=== PATIENT | female | born 1985 | race Hispanic/Latino ===

== ENCOUNTER 2018-09-14 22:38 | Emergency (ER) | payer OTHER, SELFPAY ==
--- NOTE | 2018-09-14 23:37 | RAD ---
EXAM: CHEST ONE VIEW PORTABLE: History: Injury from a fall. FINDINGS: Heart size is normal. The lungs are clear. No confluent pneumonia, overt edema, or pleural effusion. IMPRESSION: No significant acute intrathoracic disease. POS: [facility]
--- NOTE | 2018-09-14 23:48 | RAD ---
RIGHT SHOULDER THREE VIEWS: History: Injury from a fall. FINDINGS: No fracture or dislocation or other acute process. IMPRESSION: Unremarkable right shoulder. POS: [facility]
[2018-09-15] MEDS ORDERED: Adacel (T-DAP) 0.5 ML SYRINGE ONE (00:22)
[2018-09-15] MEDS ORDERED: Bacitracin 1 PK ONE (00:29)
== END 2018-09-15 01:33 | disposition home or self-care (01) ==
LOC: ERS 22:38
DX: S20.211A Contusion of right front wall of thorax, initial encounter (principal); S40.011A Contusion of right shoulder, initial encounter; S50.811A Abrasion of right forearm, initial encounter; E11.9 Type 2 diabetes mellitus without complications; W19.XXXA Unspecified fall, initial encounter
CPT/HCPCS: 71045; 90471; 90715; 94799

== ENCOUNTER 2018-10-11 10:38 | Inpatient (IN) | payer SELFPAY ==
[2018-10-11 11:08] LABS: #Eosinphils 0.1 thou/uL (0.0-0.7); #Lymphocytes 2.5 thou/uL (1.20-3.40); #Monocytes 0.5 thou/uL (0.11-0.59); #Neutrophils 8.6 thou/uL (1.40-6.50); %Basophils 0.3 % (0.0-1.0); %Eosinophils 1.1 % (0.0-10.0); %Lymphocytes 21.3 % (21.0-51.0); %Monocytes 4.6 % (0.0-10.0); %Neutrophils 72.7 % (42.0-75.0); Hemoglobin 13.3 g/dL (12.0-16.0); Mean Corpuscular HGB CONC 34.3 g/dL (32.0-36.0); Mean Corpuscular Hemoglobin 29.3 pg (27.0-31.0); Mean Corpuscular Volume 85.4 fL (78.0-98.0); Mean Platelet Volume 10.2 fL (7.4-10.4); Platelet Count 322 thou/uL (130-400); RBC Distribution Width 11.3 % (11.5-14.5); Red Blood Cell (RBC) Count 4.54 mill/uL (4.20-5.40); White Blood Cell (WBC) Count 11.8 thou/uL (4.8-10.8)
--- NOTE | 2018-10-11 11:28 | RAD ---
3 VIEWS LEFT FOOT: Date: 10/11/18 COMPARISON: None. HISTORY: Foot pain with redness and swelling. FINDINGS: There is no displaced fracture or evidence of dislocation. No radiopaque foreign body or subcutaneous gas is noted. There is soft tissue swelling involving the dorsal aspect of the mid foot/forefoot, which may signify cellulitis. IMPRESSION: Soft tissue swelling as above. No acute fracture or dislocation. POS: [facility]
[2018-10-11 11:32] LABS: ALT (SGPT) 11 U/L (8-55); AST (SGOT) 9 U/L (5-34); Albumin 3.1 g/dL (3.5-5.0); Alkaline Phosphatase 160 U/L (40-150); Anion Gap 12 mmol/L (10-20); BUN (Urea Nitrogen) 15 mg/dL (7.0-18.7); Bilirubin, Total 0.3 mg/dL (0.2-1.2); Calc. Creatinine Clearance 0 mL/min (70-130); Calcium 9.3 mg/dL (7.8-10.44); Carbon Dioxide 26 mmol/L (22-29); Chloride 101 mmol/L (98-107); Estimated GFR-MDRD 83; Globulin 4.2 g/dL (2.4-3.5); Glucose 348 mg/dL (70-105); Protein, Total 7.3 g/dL (6.0-8.3); Sodium 135 mmol/L (136-145)
[2018-10-11] MEDS ORDERED: Piperacillin/Tazobactam 4.5 GM VIAL ONE (12:14)
[2018-10-11] MEDS ORDERED: Acetaminophen 500 MG TAB ONE (12:14)
[2018-10-11 13:27] LABS: Bacteria/HPF None Seen HPF (None Seen); Bilirubin Negative (Negative); Blood, Urine Trace (Negative); Clarity Clear (Clear); Glucose, Urine (Dipstick) Greater than 1000 mg/dL (Negative); Leukocyte 75 Leu/uL (Negative); Nitrite Negative (Negative); Protein, Urine (Dipstick) 300 mg/dL (Neg-Trace); Squamous Epithelial 0-3 HPF (0-3); Urobilinogen Normal mg/dL (Less than 2)
--- NOTE | 2018-10-11 14:28 | HP ---
PRIMARY CARE PHYSICIAN: [facility]. REASON FOR ADMISSION: Diabetic toe infection. HISTORY OF PRESENT ILLNESS: A 33-year-old female, who has diabetes mellitus since age of 11 years. Per patient, her diabetes is not well controlled. She does not have any primary care physician. Received recently [facility] and received medication for diabetes and she also ran out of that medication about 1 week ago. The patient reports that she has swelling and redness over left great toe for last four days. She also had pus drainage and sees drainage by herself from the plantar aspect of the left great toe. The patient has a throbbing pain in her left great toe and she has surrounding redness and erythema, which is increasing. The patient denies any fever or chills. She denies any nausea, vomiting, diarrhea. She denies any abdominal pain. She denies any trauma. She denies any stepping down on any nail. REVIEW OF SYSTEMS: CONSTITUTIONAL: Negative for weight loss or gain, ability to conduct usual activities. SKIN: Negative for rash, itching. EYES: Negative for double vision, pain. ENT/MOUTH: Negative for nose bleeding, neck stiffness, pain, tenderness. CARDIOVASCULAR: Negative for palpitations, dyspnea on exertion, orthopnea. RESPIRATORY: Negative for shortness of breath, wheezing, cough, hemoptysis, fever or night sweats. GASTROINTESTINAL: Negative for poor appetite, abdominal pain, heartburn, nausea, vomiting, constipation, or diarrhea. GENITOURINARY: Negative for urgency, frequency, dysuria, nocturia. MUSCULOSKELETAL: Negative for pain, swelling. NEUROLOGIC/PSYCHIATRIC: Negative for anxiety, depression. ALLERGY/IMMUNOLOGIC: Negative for skin rash, bleeding tendency. Please see my HPI for pertinent positives and negatives. All other review of systems reviewed and negative except as mentioned in HPI. PAST MEDICAL HISTORY: Diabetes type 2, noncompliance with the treatment. PAST SURGICAL HISTORY: x4. PAST PSYCHIATRIC HISTORY: Reviewed and negative. SOCIAL HISTORY: The patient drinks alcohol socially on weekend. No smoking history. No drug abuse. FAMILY HISTORY: No strong family history of premature coronary artery disease, stroke, or cancer. ALLERGIES: NO KNOWN DRUG ALLERGIES. CURRENT HOME MEDICATIONS: The patient does not take any medication at this point. EMERGENCY ROOM COURSE: The patient has received vancomycin, Zosyn, IV fluid, and Tylenol. PHYSICAL EXAMINATION: VITAL SIGNS: On arrival, blood pressure 136/91, pulse 107, respiratory rate 18, temperature 98.4, saturation 99% on room air. Weight 84 kg. GENERAL: The patient is currently alert, awake, no obvious acute distress. HEENT: Head; normocephalic, atraumatic. Eyes; pupils round, reactive to light. Extraocular muscle intact. ENT, oropharynx within normal limits. Moist mucous membranes. No oral lesion. No pharyngeal erythema. No exudate. NECK: Supple. No JVD. No thyromegaly. No carotid bruit. No jugular venous distention. LUNGS: Clear to auscultation without any rhonchi or rales. CARDIAC: S1 and S2, regular. Tachycardia. No murmur. No gallop. No rub. ABDOMEN: Soft. Bowel sounds present. Nontender. Nondistended. No organomegaly. No mass. No suprapubic tenderness. BACK: Unremarkable. No CVA tenderness. EXTREMITIES: Upper extremities, passive movement of all joints are normal. Lower extremities; left great toe noted erythematous, tender with surrounding cellulitis. NEUROLOGIC: Nonfocal examination. SIGNIFICANT LABORATORY DATA: CBC; WBC 11.8, hemoglobin 13.3, platelet 322. ESR 93. BMP; sodium 135, potassium 4.0, chloride 101, carbon dioxide 26, BUN 15, creatinine 0.80, glucose 348, calcium 9.3. Lactic acid 1.3. LFTs; AST 9, ALT 11, alkaline phosphatase 160, albumin 3.1. CRP 11.36. ASSESSMENT AND PLAN: 1. Left great toe diabetic toe infection with surrounding cellulitis. The patient has elevated ESR and CRP, though x-ray of the foot is not showing any bony involvement, only showing soft tissue swelling, but underlying osteomyelitis needs to be excluded. We will obtain MRI of the left foot. We will start empiric antibiotic therapy with vancomycin and Zosyn. We will control her pain with morphine. Wound Care Team will be consulted. We will closely monitor while in hospital. 2. Diabetes type 2, uncontrolled. We will check hemoglobin A1c. We will start metformin 500 mg b.i.d., glyburide 5 mg daily. Diabetic diet will be given insulin as per sliding scale protocol. 3. Medication noncompliance. Patient education given about diabetes as well as compliance with the treatment educated. 4. Hypoalbuminemia. We will check urinalysis and random urine protein creatinine ratio, suspecting diabetic nephropathy and possible proteinuria. 5. Deep venous thrombosis prophylaxis, Lovenox 40 mg subcu daily. 6. Gastrointestinal prophylaxis, Pepcid 20 mg p.o. b.i.d. CODE STATUS: The patient is full code. The patient does not have any surrogate decision maker. DISPOSITION PLAN: Based on clinical course, we are expecting the patient's stay in hospital more than 2 midnights. Plan of care discussed with the patient in detail. Job ID: [id number]
[2018-10-11] MEDS ORDERED: Ondansetron PF 4 MG/2 ML Vial IVP PRN ×2 (15:36→17:25)
[2018-10-11] MEDS ORDERED: Sodium Chloride 0.9% 1,000 ML IV SCH (15:36)
[2018-10-11] MEDS ORDERED: Acetaminophen 325 MG TAB PO PRN ×2 (15:36→17:25)
[2018-10-11] MEDS ORDERED: Ondansetron ODT 4 MG TAB SL PRN (15:36)
[2018-10-11 16:16] VITALS: BMI 33.0
[2018-10-11] MEDS ORDERED: hydrALAZINE 20 MG/ML VIAL SLOW IVP PRN (17:25)
[2018-10-11] MEDS ORDERED: Zolpidem Tartrate 5 MG TAB PO PRN (17:25)
[2018-10-11] MEDS ORDERED: HYDROcodone/Acetaminophen 5/325 mg Tablet PO PRN (17:25)
[2018-10-11] MEDS ORDERED: Calcium Carbonate 500 MG ChewTAB PO PRN (17:25)
[2018-10-11] MEDS ORDERED: Artificial Tears 18 DROP/0.9 ML EA EYE PRN (17:25)
[2018-10-11] MEDS ORDERED: Ondansetron ODT 4 MG TAB PO PRN (17:25)
[2018-10-11] MEDS ORDERED: Bisacodyl 10 MG SUPP PR PRN (17:25)
[2018-10-11] MEDS ORDERED: Sodium Chloride 0.65% Nasal 44 ML BOT EA NARE PRN (17:25)
[2018-10-11] MEDS ORDERED: Dextrose 50% Abboject 50 ML SYRINGE SLOW IVP PRN (17:25)
[2018-10-11] MEDS ORDERED: HumaLOG 300 UNITS/3 ML VIAL SC PRN (17:25)
[2018-10-11] MEDS ORDERED: Morphine 2 MG/ML SYRINGE SLOW IVP PRN (17:25)
[2018-10-11] MEDS ORDERED: Cepastat Lozenges 1 LOZ PO PRN (17:25)
[2018-10-11] MEDS ORDERED: Dextrose 5% in Water 1,000 ML IV PRN (17:25)
[2018-10-11] MEDS ORDERED: Loperamide HCl 2 MG CAP PO PRN (17:25)
[2018-10-11] MEDS ORDERED: Senokot S 8.6-50 MG TAB PO PRN (17:25)
[2018-10-11] MEDS ORDERED: Diabetic Tussin 200 MG/10 ML UDCUP PO PRN (17:25)
[2018-10-11] MEDS ORDERED: Loratadine 10 MG TAB PO PRN (17:25)
[2018-10-11] MEDS ORDERED: Piperacillin/Tazobactam 3.375 GM in Sodium Chloride 0.9% 100 ML IVPB SCH (18:00)
[2018-10-11] MEDS: Piperacillin/Tazobactam 3.375 GM in Sodium Chloride 0.9% 100 ML IVPB SCH (18:14)
[2018-10-11] MEDS: metFORMIN 500 MG TAB PO SCH (18:14)
[2018-10-11] MEDS: Sodium Chloride 0.9% 1,000 ML IV SCH (18:15)
[2018-10-11] MEDS: HumaLOG 300 UNITS/3 ML VIAL SC PRN (18:16)
[2018-10-11] MEDS: Vancomycin HCl 1.75 GM in Sodium Chloride 0.9% 500 ML IVPB SCH (20:49)
[2018-10-11] MEDS: Famotidine 20 MG TAB PO SCH (20:50)
[2018-10-11 23:24] LABS: Creatinine, Urine 22.24 mg/dL (47-110)
[2018-10-12] MEDS: Piperacillin/Tazobactam 3.375 GM in Sodium Chloride 0.9% 100 ML IVPB SCH ×4 (00:03→18:27)
[2018-10-12] MEDS ORDERED: Vancomycin HCl 1 GM in Premix Bag 1 BAG IVPB SCH (01:00)
[2018-10-12] MEDS: Sodium Chloride 0.9% 1,000 ML IV SCH ×2 (03:18→23:05)
[2018-10-12] MEDS: Vancomycin HCl 1.75 GM in Sodium Chloride 0.9% 500 ML IVPB SCH ×2 (03:35→14:09)
[2018-10-12 05:29] LABS: #Eosinphils 0.2 thou/uL (0.0-0.7); #Lymphocytes 2.5 thou/uL (1.20-3.40); #Monocytes 0.6 thou/uL (0.11-0.59); #Neutrophils 6.9 thou/uL (1.40-6.50); %Basophils 0.2 % (0.0-1.0); %Eosinophils 1.5 % (0.0-10.0); %Lymphocytes 24.8 % (21.0-51.0); %Monocytes 5.6 % (0.0-10.0); %Neutrophils 67.9 % (42.0-75.0); Hemoglobin 10.4 g/dL (12.0-16.0); Mean Corpuscular HGB CONC 33.7 g/dL (32.0-36.0); Mean Corpuscular Hemoglobin 28.7 pg (27.0-31.0); Mean Corpuscular Volume 85.2 fL (78.0-98.0); Mean Platelet Volume 9.9 fL (7.4-10.4); Platelet Count 249 thou/uL (130-400); Red Blood Cell (RBC) Count 3.62 mill/uL (4.20-5.40); White Blood Cell (WBC) Count 10.2 thou/uL (4.8-10.8)
[2018-10-12 05:44] LABS: Hemoglobin A1c 16.1 % (4.0-6.0)
[2018-10-12 06:11] LABS: Anion Gap 9 mmol/L (10-20); BUN (Urea Nitrogen) 13 mg/dL (7.0-18.7); Calc. Creatinine Clearance 185 mL/min (70-130); Calcium 7.2 mg/dL (7.8-10.44); Carbon Dioxide 22 mmol/L (22-29); Chloride 110 mmol/L (98-107); Estimated GFR-MDRD Greater than 90; Glucose 133 mg/dL (70-105); Potassium 3.6 mmol/L (3.5-5.1); Sodium 137 mmol/L (136-145)
[2018-10-12] MEDS: metFORMIN 500 MG TAB PO SCH ×2 (08:32→15:57)
[2018-10-12] MEDS: glyBURIDE 5 MG TAB PO SCH (08:32)
[2018-10-12] MEDS: Saccharomyces boulardii 250 MG CAP PO SCH (08:32)
[2018-10-12] MEDS: Famotidine 20 MG TAB PO SCH ×2 (08:33→20:10)
[2018-10-12] MEDS: Enoxaparin Sodium 40 MG/0.4 ML SYRINGE SC SCH (08:33)
[2018-10-12] MEDS: Lisinopril 5 MG TAB PO SCH (08:40)
--- NOTE | 2018-10-12 10:08 | PDOC.HOSPP ---
- Subjective Encounter Date: 10/12/18 Encounter Time: 08:45 Subjective: Patient seen and examined. No new complaints. No overnight events - Objective Vital Signs & Weight: Vital Signs (12 hours) Temp Pulse Resp BP BP BP Pulse Ox 10/12/18 08:40 97 129/84 10/12/18 08:00 98.8 F 97 20 129/84 98 10/12/18 04:00 98.3 F 101 H 16 124/82 95 Weight Weight 186 lb 14.4 oz Result Diagrams: 10/12/18 04:51 10/12/18 04:51 Additional Labs: Accuchecks 10/12/18 10/11/18 10/11/18 04:34 20:50 16:22 POC Glucose 143 H 284 H 438 H Hospitalist ROS - Review of Systems Eyes: denies: pain, vision change, conjunctivae inflammation, eyelid inflammation, redness, other ENT: denies: ear pain, ear discharge, nose pain, nose discharge, nose congestion , mouth pain, mouth swelling, throat pain, throat swelling, other Respiratory: denies: cough, dry, shortness of breath, hemoptysis, SOB with excertion, pleuritic pain, sputum, wheezing, other Cardiovascular: denies: chest pain, palpitations, orthopnea, paroxysmal noc. dyspnea, edema, light headedness, other Gastrointestinal: denies: nausea, vomitting, abdominal pain, diarrhea, constipation, melena, hematochezia, other Genitourinary: denies: dysuria, frequency, incontinence, hematuria, retention, other Musculoskeletal: denies: neck pain, shoulder pain, arm pain, back pain, hand pain, leg pain, foot pain, other Skin: denies: rash, lesions, meggan, bruising, other - Medication Medications: Active Medications Generic Name Dose Route Start Last Admin Trade Name Freq PRN Reason Stop Dose Admin Enoxaparin Sodium 40 mg 10/12/18 09:00 10/12/18 08:33 Lovenox SC 40 mg 0900 SLOANE Administration Famotidine 20 mg 10/11/18 21:00 10/12/18 08:33 Pepcid PO 20 mg BID SLOANE Administration Glyburide 5 mg 10/12/18 08:00 10/12/18 08:32 Diabeta PO 5 mg QAM-WM SLOANE Administration Piperacillin Sod/Tazobactam 100 mls @ 200 mls/hr 10/11/18 18:00 10/12/18 05: 41 Sod 3.375 gm/ Sodium Chloride IVPB 100 mls Q6HR SLOANE Administration Sodium Chloride 1,000 mls @ 100 mls/hr 10/11/18 17:25 10/12/18 03:18 Normal Saline 0.9% IV Not Given .Q10H SLOANE Vancomycin HCl 1.75 gm/ Sodium 500 mls @ 250 mls/hr 10/11/18 20:00 10/12/18 03:35 Chloride IVPB 500 mls 0400,1200,2000 SLOANE Administration Insulin Human Lispro 0 units 10/11/18 17:25 10/11/18 18:16 Humalog SC 10 unit .MODERATE SLIDING SC PRN Administration Moderate Correctional Scale Insulin Human Lispro 0 units 10/11/18 17:25 10/11/18 20:50 Humalog SC 3 unit .BEDTIME SLIDING SC PRN Administration Bedtime Correctional Scale Lisinopril 5 mg 10/12/18 09:00 10/12/18 08:40 Zestril PO 5 mg DAILY SLOANE Administration Metformin HCl 500 mg 10/11/18 17:00 10/12/18 08:32 Glucophage PO 500 mg BID-WM SLOANE Administration Saccharomyces Boulardii 250 mg 10/12/18 09:00 10/12/18 08:32 Florastor PO 250 mg DAILY SLOANE Administration - Exam General Appearance: NAD, awake alert Eye: PERRL, anicteric sclera ENT: normocephalic atraumatic, no oropharyngeal lesions Neck: supple, symmetric, no JVD, no thyromegaly Heart: RRR, no murmur, no gallops, no rubs Respiratory: CTAB, no wheezes, no rales, no ronchi Gastrointestinal: soft, non-tender, non-distended, normal bowel sounds Extremities: no cyanosis, no clubbing, no edema Extremeties - other findings: left great toe and foot cellulitis Skin: normal turgor, no lesions, no rashes Neurological: CN's grossly intact, normal sensation to touch, no focal deficits , no new deficit Musculoskeletal: normal tone, normal strength, no muscle wasting Psychiatric: normal affect, normal behavior, A&O x 3 Hosp A/P (1) Cellulitis of toe of left foot Code(s): L03.032 - CELLULITIS OF LEFT TOE Status: Acute (2) Hypoalbuminemia Code(s): E88.09 - OTH DISORDERS OF PLASMA-PROTEIN METABOLISM, NEC Status: Acute (3) Nephrotic range proteinuria Code(s): R80.9 - PROTEINURIA, UNSPECIFIED Status: Acute (4) Anemia, normocytic normochromic Code(s): D64.9 - ANEMIA, UNSPECIFIED Status: Chronic (5) DM (diabetes mellitus), type 2, uncontrolled Code(s): E11.65 - TYPE 2 DIABETES MELLITUS WITH HYPERGLYCEMIA Status: Chronic (6) Noncompliance with diabetes treatment Code(s): Z91.19 - PATIENT'S NONCOMPLIANCE W OTH MEDICAL TREATMENT AND REGIMEN Status: Chronic (7) Obesity (BMI 30.0-34.9) Code(s): E66.9 - OBESITY, UNSPECIFIED Status: Chronic - Plan old records reviewed/req, continue antibiotics, DVT proph w/lovenox continue vancomycin and zosyn continue diabetes control while in hsopital follow on culture result, 1/2 positive for GPC may be contaminant today MRI to rule out osteomyelitis medication reviewed as above symptomatic treatment
--- NOTE | 2018-10-12 13:19 | MRI ---
Exam: Left foot MRI with and without IV contrast: HISTORY: Wound on the plantar surface of the great toe. FINDINGS: Soft tissue swelling with some edema is changes or cellulitis involving the great toe region. There i s some subtle STIR and T2 hyperintensity within the distal phalanx of the great toe without significant abnormal T1 signal evidence for nonspecific osteitis. No evidence for drainable abscess. Nonspecific edema or cellulitis involving the dorsal aspect of the foot extending to the mid foot. IMPRESSION: Evidence for nonspecific osteitis involving the distal phalanx of the great toe. No evidence for asso ciated osteomyelitis. No evidence for a drainable abscess. Soft tissue swelling evidence for cellulitis or edema changes involving the great toe and over the dorsal aspect of the forefoot.
[2018-10-12 19:49] LABS: Vancomycin, Trough 52.9 ug/mL
[2018-10-13] MEDS: Piperacillin/Tazobactam 3.375 GM in Sodium Chloride 0.9% 100 ML IVPB SCH ×5 (00:32→23:08)
[2018-10-13] MEDS: Vancomycin HCl 1.75 GM in Sodium Chloride 0.9% 500 ML IVPB SCH (01:25)
[2018-10-13] MEDS: HumaLOG 300 UNITS/3 ML VIAL SC PRN (05:28)
[2018-10-13] MEDS: Famotidine 20 MG TAB PO SCH ×2 (08:21→20:59)
[2018-10-13] MEDS: Lisinopril 5 MG TAB PO SCH (08:21)
[2018-10-13] MEDS: Enoxaparin Sodium 40 MG/0.4 ML SYRINGE SC SCH (08:22)
[2018-10-13] MEDS: glyBURIDE 5 MG TAB PO SCH (08:22)
[2018-10-13] MEDS: Sodium Chloride 0.9% 1,000 ML IV SCH ×3 (08:22→23:08)
[2018-10-13] MEDS: Saccharomyces boulardii 250 MG CAP PO SCH (08:22)
[2018-10-13] MEDS: metFORMIN 500 MG TAB PO SCH ×2 (08:22→17:09)
--- NOTE | 2018-10-13 12:26 | PDOC.HOSPP ---
- Subjective Encounter Date: 10/13/18 Subjective: denies any distress, appears comfortable. - Objective Vital Signs & Weight: Vital Signs (12 hours) Temp Pulse Resp BP BP Pulse Ox 10/13/18 11:32 98.1 F 96 16 144/92 H 96 10/13/18 08:21 90 119/78 10/13/18 08:00 97 10/13/18 07:13 98.1 F 90 16 119/78 97 Weight Weight 186 lb 14.4 oz Result Diagrams: 10/12/18 04:51 10/12/18 04:51 Additional Labs: Accuchecks 10/13/18 10/13/18 10/12/18 11:51 05:30 20:10 POC Glucose 166 H 172 H 164 H 10/12/18 16:18 POC Glucose 186 H Hospitalist ROS - Medication Medications: Active Medications Generic Name Dose Route Start Last Admin Trade Name Freq PRN Reason Stop Dose Admin Enoxaparin Sodium 40 mg 10/12/18 09:00 10/13/18 08:22 Lovenox SC 40 mg 0900 SLOANE Administration Famotidine 20 mg 10/11/18 21:00 10/13/18 08:21 Pepcid PO 20 mg BID SLOANE Administration Glyburide 5 mg 10/12/18 08:00 10/13/18 08:22 Diabeta PO 5 mg QAM-WM SLOANE Administration Piperacillin Sod/Tazobactam 100 mls @ 200 mls/hr 10/11/18 18:00 10/13/18 11: 00 Sod 3.375 gm/ Sodium Chloride IVPB 100 mls Q6HR SLOANE Administration Sodium Chloride 1,000 mls @ 100 mls/hr 10/11/18 17:25 10/13/18 08:22 Normal Saline 0.9% IV 1,000 mls .Q10H SLOANE Administration Insulin Human Lispro 0 units 10/11/18 17:25 10/13/18 05:28 Humalog SC 2 unit .MODERATE SLIDING SC PRN Administration Moderate Correctional Scale Insulin Human Lispro 0 units 10/11/18 17:25 10/11/18 20:50 Humalog SC 3 unit .BEDTIME SLIDING SC PRN Administration Bedtime Correctional Scale Lisinopril 5 mg 10/12/18 09:00 10/13/18 08:21 Zestril PO 5 mg DAILY SLOANE Administration Metformin HCl 500 mg 10/11/18 17:00 10/13/18 08:22 Glucophage PO 500 mg BID-WM SLOANE Administration Saccharomyces Boulardii 250 mg 10/12/18 09:00 10/13/18 08:22 Florastor PO 250 mg DAILY SLOANE Administration - Exam General Appearance: NAD, awake alert Eye: PERRL, anicteric sclera ENT: normocephalic atraumatic, no oropharyngeal lesions, moist mucosa Neck: supple, symmetric, no JVD, no thyromegaly, no lymphadenopathy, no carotid bruit Heart: RRR, no murmur, no gallops, no rubs, normal peripheral pulses Respiratory: CTAB, no wheezes, no rales, no ronchi, normal chest expansion, no tachypnea, normal percussion Gastrointestinal: soft, non-tender, non-distended, normal bowel sounds, no palpable masses, no hepatomegaly, no splenomegaly, no bruit Extremities: no cyanosis, no clubbing, no edema Skin: normal turgor Skin - other findings: positive left pedal pulse, echymosis on bottom of the toe , redness improved Neurological: CN's grossly intact, normal sensation to touch, no weakness, no focal deficits, no new deficit Hosp A/P (1) Cellulitis of toe of left foot Code(s): L03.032 - CELLULITIS OF LEFT TOE Status: Acute (2) DM (diabetes mellitus), type 2, uncontrolled Code(s): E11.65 - TYPE 2 DIABETES MELLITUS WITH HYPERGLYCEMIA Status: Chronic (3) Noncompliance with diabetes treatment Code(s): Z91.19 - PATIENT'S NONCOMPLIANCE [facility]IM[facility] Status: Chronic - Plan DM---very poorly controlled due to non-compliance witnessed by the elevated hba1c. ID --cellulitis of the left toe without OM on MRI---much improved today---will continue current ATB---deescalate tomorrow and possible d/c tomorrow. hgb did drop but without obvious cause---will recheck in am otherwise continue same management.
[2018-10-13] MEDS ORDERED: Lidocaine 1% w/Epinephrine 1:100K 20 ML VIAL ONE (18:14)
[2018-10-13 19:32] LABS: Vancomycin, Random 7.9 ug/mL (See Comment)
--- NOTE | 2018-10-14 00:06 | CON ---
DATE OF CONSULTATION: HISTORY OF PRESENT ILLNESS: Ms. 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 She noted that she had an ulcer of her left great toe, developed a cellulitis to her ankle. Three views of the foot reveals soft tissue swelling. MRI of the foot reveals osteitis without noemy osteomyelitis to the distal phalanx. The patient has a plantar ulcer to left great toe with blistered skin and ecchymosis. She reports that since being here since 10/11 on intravenous antibiotics, the cellulitis has greatly improved. ALLERGIES: NONE. SOCIAL HISTORY: Tobacco, none. Alcohol, none. MEDICATIONS: Metformin. PAST SURGICAL HISTORY: C-sections. PAST MEDICAL HISTORY: Diabetes mellitus, non-insulin dependent. REVIEW OF SYSTEMS: Noncontributory. PHYSICAL EXAMINATION: VITAL SIGNS: Height 5 foot 3, 186 pounds, 33 BMI. HEAD EARS, EYES, NOSE AND THROAT: Unremarkable. LUNGS: Clear to auscultation. CARDIAC: Regular rate and rhythm without murmur or gallop. ABDOMEN: Soft and nontender. EXTREMITIES: Palpable pedal pulses. Left great toe plantar blistering with ulceration in the interphalangeal crease of the distal toe, mid toe plantar. This has necrotic tissue as an eschar. There is some drainage. LABORATORY DATA: Cultures: Blood cultures coagulase negative Staph. No cultures from the wound had been obtained. There is mild inflammatory change to the great toe. ASSESSMENT: Left great toe diabetic ulceration wound and cellulitis. There is osteoitis without osteomyelitis on the MRI scan. We are recommending consultation with Dr. Davis for antibiotic salvage of this toe. I can debride it at bedside. Risks and benefits discussed. She consents. We would recommend outpatient wound care, [facility] appointment, weight bear as tolerated in an orthotic shoe to accommodate her dressings, washing the wound with soap and water every 1 or 2 days, pending wound care wound recommendations. Could follow up with my office in 2 to 3 weeks or see her sooner in wound care as an outpatient. Job ID: [id number]
[2018-10-14] MEDS: Vancomycin HCl 1.75 GM in Sodium Chloride 0.9% 500 ML IVPB SCH ×4 (00:39→12:00)
[2018-10-14] MEDS: Piperacillin/Tazobactam 3.375 GM in Sodium Chloride 0.9% 100 ML IVPB SCH ×4 (05:24→23:08)
[2018-10-14 06:00] LABS: #Eosinphils 0.2 thou/uL (0.0-0.7); #Lymphocytes 2.4 thou/uL (1.20-3.40); #Monocytes 0.8 thou/uL (0.11-0.59); #Neutrophils 5.5 thou/uL (1.40-6.50); %Basophils 0.5 % (0.0-1.0); %Eosinophils 2.7 % (0.0-10.0); %Lymphocytes 26.9 % (21.0-51.0); %Monocytes 8.9 % (0.0-10.0); Hemoglobin 10.6 g/dL (12.0-16.0); Mean Corpuscular HGB CONC 34.6 g/dL (32.0-36.0); Mean Corpuscular Volume 83.9 fL (78.0-98.0); Mean Platelet Volume 9.6 fL (7.4-10.4); Platelet Count 275 thou/uL (130-400); Red Blood Cell (RBC) Count 3.65 mill/uL (4.20-5.40); White Blood Cell (WBC) Count 8.9 thou/uL (4.8-10.8)
[2018-10-14 06:21] LABS: Anion Gap 8 mmol/L (10-20); BUN (Urea Nitrogen) 7 mg/dL (7.0-18.7); Calc. Creatinine Clearance 162 mL/min (70-130); Calcium 8.1 mg/dL (7.8-10.44); Carbon Dioxide 23 mmol/L (22-29); Chloride 113 mmol/L (98-107); Estimated GFR-MDRD Greater than 90; Glucose 104 mg/dL (70-105); Potassium 3.3 mmol/L (3.5-5.1); Sodium 141 mmol/L (136-145)
[2018-10-14] MEDS: Saccharomyces boulardii 250 MG CAP PO SCH (08:24)
[2018-10-14] MEDS: glyBURIDE 5 MG TAB PO SCH (08:24)
[2018-10-14] MEDS: Enoxaparin Sodium 40 MG/0.4 ML SYRINGE SC SCH (08:24)
[2018-10-14] MEDS: Lisinopril 5 MG TAB PO SCH (08:24)
[2018-10-14] MEDS: metFORMIN 500 MG TAB PO SCH ×2 (08:24→16:49)
[2018-10-14] MEDS: Sodium Chloride 0.9% 1,000 ML IV SCH (08:25)
[2018-10-14] MEDS: Famotidine 20 MG TAB PO SCH ×2 (09:26→20:17)
--- NOTE | 2018-10-14 13:50 | OP ---
DATE OF PROCEDURE: 10/14/2018 PREOPERATIVE DIAGNOSIS: Diabetic wound left great toe plantar with cellulitis to the foot, resolving with antibiotics. MRI scan, osteitis without osteomyelitis. PROCEDURE PERFORMED: Sharp 10 blade excisional, resectional, debridement of callus, subcutaneous tissue, exposing plantar ulceration approximately 1 cm deep and 1 cm wide. ANESTHESIA: None. DESCRIPTION OF PROCEDURE: With the patient at bedside, left plantar toe was prepared with alcohol. The callus and blistered skin was debrided sharply, unroofing, exposing underlying ulceration, extending of dimensions as noted above. Excision of skin callus and small amount of subcutaneous tissues obtained. There was some soupy material without frankly purulent material (the patient has been on antibiotics intravenous for several days). Cultures obtained from the wound. Saline wet-to-dry dressing applied. Wound care notified. We will see the patient to instruct her on wound care. She should wash the wound daily with soap and water in the bath or shower and place saline wet-to-dry dressing initially and follow up in my office in 2 weeks. I will look at the wound tomorrow with wound care. Job ID: [id number]
[2018-10-14] MEDS ORDERED: Potassium Chloride 20 MEQ TAB PO SCH (17:30)
--- NOTE | 2018-10-14 17:32 | PDOC.HOSPP ---
- Subjective Encounter Date: 10/14/18 Subjective: has no complaints, she reports that she was diagnosed with anemia 2 years ago after her . - Objective Vital Signs & Weight: Vital Signs (12 hours) Temp Pulse Resp BP BP Pulse Ox 10/14/18 08:24 88 124/77 10/14/18 07:18 98.5 F 88 16 124/77 96 Weight Admit Weight 186 lb Weight 186 lb 14.4 oz I&O: 10/13/18 10/14/18 10/15/18 06:59 06:59 06:59 Intake Total 3340 Balance 3340 Result Diagrams: 10/14/18 05:22 10/14/18 05:22 Additional Labs: Accuchecks 10/14/18 10/14/18 10/13/18 15:42 10:53 20:51 POC Glucose 100 146 H 138 H Hospitalist ROS - Medication Medications: Active Medications Generic Name Dose Route Start Last Admin Trade Name Freq PRN Reason Stop Dose Admin Acetaminophen 650 mg 10/11/18 17:25 10/13/18 21:02 Tylenol PO 650 mg Q4H PRN Administration Headache/Fever/Mild Pain (1-3) Enoxaparin Sodium 40 mg 10/12/18 09:00 10/14/18 08:24 Lovenox SC 40 mg 0900 SLOANE Administration Famotidine 20 mg 10/11/18 21:00 10/14/18 09:26 Pepcid PO Not Given BID SLOANE Glyburide 5 mg 10/12/18 08:00 10/14/18 08:24 Diabeta PO 5 mg QAM-WM SLOANE Administration Piperacillin Sod/Tazobactam 100 mls @ 200 mls/hr 10/11/18 18:00 10/14/18 16: 49 Sod 3.375 gm/ Sodium Chloride IVPB 100 mls Q6HR SLOANE Administration Sodium Chloride 1,000 mls @ 100 mls/hr 10/11/18 17:25 10/14/18 08:25 Normal Saline 0.9% IV 1,000 mls .Q10H SLOANE Administration Vancomycin HCl 1.75 gm/ Sodium 500 mls @ 250 mls/hr 10/14/18 01:00 10/14/18 12:00 Chloride IVPB 500 mls 0100,1300 SLOANE Administration Insulin Human Lispro 0 units 10/11/18 17:25 10/13/18 05:28 Humalog SC 2 unit .MODERATE SLIDING SC PRN Administration Moderate Correctional Scale Insulin Human Lispro 0 units 10/11/18 17:25 10/11/18 20:50 Humalog SC 3 unit .BEDTIME SLIDING SC PRN Administration Bedtime Correctional Scale Lisinopril 5 mg 10/12/18 09:00 10/14/18 08:24 Zestril PO 5 mg DAILY SLOANE Administration Metformin HCl 500 mg 10/11/18 17:00 10/14/18 16:49 Glucophage PO 500 mg BID-WM SLOANE Administration Saccharomyces Boulardii 250 mg 10/12/18 09:00 10/14/18 08:24 Florastor PO 250 mg DAILY SLOANE Administration - Exam General Appearance: NAD, awake alert Eye: PERRL, anicteric sclera ENT: normocephalic atraumatic, no oropharyngeal lesions, moist mucosa Neck: supple, symmetric, no JVD, no thyromegaly, no lymphadenopathy, no carotid bruit Heart: RRR, no murmur, no gallops, no rubs, normal peripheral pulses Respiratory: CTAB, no wheezes, no rales, no ronchi, normal chest expansion, no tachypnea, normal percussion Gastrointestinal: soft, non-tender, non-distended, normal bowel sounds, no palpable masses, no hepatomegaly, no splenomegaly, no bruit Extremities: no cyanosis Skin: normal turgor, no lesions, no rashes Neurological: CN's grossly intact, normal sensation to touch, no weakness, no focal deficits, no new deficit Musculoskeletal: normal tone, normal strength, no muscle wasting Psychiatric: normal affect, normal behavior, A&O x 3 Hosp A/P (1) Cellulitis of toe of left foot Code(s): L03.032 - CELLULITIS OF LEFT TOE Status: Acute (2) DM (diabetes mellitus), type 2, uncontrolled Code(s): E11.65 - TYPE 2 DIABETES MELLITUS WITH HYPERGLYCEMIA Status: Chronic (3) Noncompliance with diabetes treatment Code(s): Z91.19 - PATIENT'S NONCOMPLIANCE W [facility] MEDICAL TREATMENT AND REGIMEN Status: Chronic - Plan DM---very poorly controlled due to non-compliance witnessed by the elevated [id number] is well controlled on current regimen--she was not taking her meds as an outpatient. ID --cellulitis of the left toe without OM on MRI but osteitis ---much improved today---will continue current ATB---she had an I and D done ---no noemy pus as per surgeon note, will continue her current regimen--ID will set up OP therapy. hgb did drop but without obvious cause---recheck in am was the same ----suspect chronic anemia---will order iron studies. otherwise continue same management.
[2018-10-14 17:44] LABS: Iron 17 ug/dL (50-170); Iron Binding Capacity, Total 148 mcg/dL (265-497)
[2018-10-14 17:45] LABS: Iron 17 ug/dL (50-170); Iron Binding Capacity, Total 150 mcg/dL (265-497)
--- NOTE | 2018-10-14 22:43 | CON ---
DATE OF CONSULTATION: 10/14/2018 REASON FOR CONSULTATION: Type 2 diabetes with left foot hallux osteitis/osteomyelitis. 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 An MRI showed osteitis in distal phalanx of the great toe. The patient had a surgical intervention by Dr. Gongora with limited I and D, excision of skin callus and small amount of subcutaneous tissues obtained. There was some soupy material, but no purulent cultures were obtained from the wound and currently she is feeling well. Denies headaches, visual symptoms, sore throat, odynophagia, dysphagia. No cough or sputum production, no chest pain. No abdominal pain or diarrhea. No genitourinary symptoms. Minimal or no pain involving the extremity. PAST MEDICAL HISTORY: Congenital atrophy of left upper extremity, type 2 diabetes, neuropathy. PAST SURGICAL HISTORY: x4. SOCIAL HISTORY: Works at [employer]. Drinks occasionally. Never smoker. Lives in [place]. FAMILY HISTORY: Noncontributory. ALLERGIES: NONE. CURRENT MEDICATIONS: 1. Hydrocodone. 2. Tears Naturale. 3. Dulcolax. 4. Tums. 5. Dextrose. 6. Lovenox. 7. DiaBeta. 8. Insulin. 9. Glucophage. 10. Zosyn. 11. Vancomycin. PHYSICAL EXAMINATION: VITAL SIGNS: Essentially normal. She has been afebrile. SKIN: Shows the left first toe ulcer with swelling and callus. This was debrided by Dr. Gongora. Peripheral IV access, no lymphadenopathy. HEENT: Ocular movements conjugate. Oral cavity normal. NECK: Supple. LUNGS: Symmetric. Clear breath sounds. S1-S2 regular rate. ABDOMEN: Soft, not distended or tender. NEUROLOGIC: Examination nonfocal including cognitive function. LABORATORY DATA: White cell count was 11.8, down to 8.9, hemoglobin 10.6, platelets 275, and creatinine 0.66. AST 9, ALT 11, alkaline phosphatase 160. CRP 11.36. Urinalysis 11-20 wbcs. Microbiology, coagulase negative Staph in one set of blood cultures. The toe sample with polymicrobial anamaria including gram-positive rods, positive cocci in pairs. ASSESSMENT: Ulcer with cellulitis, early osteitis, left hallux. She has good vascular supply and we will wait for the culture results and may be able to transition her to oral antimicrobial therapy for discharge planning for at least 4 weeks, if not 6. If the organism is resistant, may need a PICC line placement and outpatient IV antimicrobial therapy. Job ID: [id number]
[2018-10-15] MEDS: Vancomycin HCl 1.75 GM in Sodium Chloride 0.9% 500 ML IVPB SCH (01:26)
[2018-10-15] MEDS: Sodium Chloride 0.9% 1,000 ML IV SCH (01:27)
[2018-10-15] MEDS: Piperacillin/Tazobactam 3.375 GM in Sodium Chloride 0.9% 100 ML IVPB SCH (05:04)
[2018-10-15 05:34] LABS: #Eosinphils 0.2 thou/uL (0.0-0.7); #Lymphocytes 1.8 thou/uL (1.20-3.40); #Monocytes 0.5 thou/uL (0.11-0.59); #Neutrophils 4.5 thou/uL (1.40-6.50); %Basophils 0.4 % (0.0-1.0); %Eosinophils 2.4 % (0.0-10.0); %Lymphocytes 25.4 % (21.0-51.0); %Monocytes 7.4 % (0.0-10.0); %Neutrophils 64.4 % (42.0-75.0); Hemoglobin 9.2 g/dL (12.0-16.0); Mean Corpuscular HGB CONC 34.6 g/dL (32.0-36.0); Mean Corpuscular Hemoglobin 29.6 pg (27.0-31.0); Mean Corpuscular Volume 85.5 fL (78.0-98.0); Mean Platelet Volume 9.5 fL (7.4-10.4); Platelet Count 272 thou/uL (130-400); RBC Distribution Width 11.1 % (11.5-14.5); Red Blood Cell (RBC) Count 3.12 mill/uL (4.20-5.40)
[2018-10-15 05:50] LABS: Anion Gap 9 mmol/L (10-20); BUN (Urea Nitrogen) 6 mg/dL (7.0-18.7); Calc. Creatinine Clearance 147 mL/min (70-130); Calcium 7.8 mg/dL (7.8-10.44); Carbon Dioxide 22 mmol/L (22-29); Chloride 114 mmol/L (98-107); Estimated GFR-MDRD Greater than 90; Glucose 116 mg/dL (70-105); Potassium 3.6 mmol/L (3.5-5.1); Sodium 141 mmol/L (136-145)
[2018-10-15] MEDS: Lisinopril 5 MG TAB PO SCH (09:48)
[2018-10-15] MEDS: Saccharomyces boulardii 250 MG CAP PO SCH (09:48)
[2018-10-15] MEDS: metFORMIN 500 MG TAB PO SCH (09:49)
[2018-10-15] MEDS: glyBURIDE 5 MG TAB PO SCH (09:49)
[2018-10-15] MEDS: Enoxaparin Sodium 40 MG/0.4 ML SYRINGE SC SCH (09:49)
[2018-10-15] MEDS: Famotidine 20 MG TAB PO SCH (09:49)
--- NOTE | 2018-10-15 09:55 | PRG ---
DATE OF SERVICE: Ms. Erickson is doing well today. She has been seen by Dr. Davis. Her toe cultures reveal multiple organisms on Gram stain. She is on intravenous antibiotics. Her toe wound looks better today. I would recommend outpatient wound care, washing the foot with soap and water daily, applying silver dressing or antibiotic ointment, Band-Aid to the wound. She can follow up in my office in 2 weeks. I will see her as needed this hospitalization. Antibiotic will be guided by Infectious Disease. Dr. Davis was seeing her. Please call if necessary this hospitalization. Job ID: [id number]
[2018-10-15 13:17] VITALS: BP 157/95; TEMP 98.3
--- NOTE | 2018-10-16 12:18 | DIS ---
DATE OF ADMISSION: 10/11/2018 DATE OF DISCHARGE: 10/15/2018 HOSPITAL COURSE: This is a 33-year-old female patient, who was admitted to our hospital on 10/11/2108, for swelling and redness over her left toe and pus drainage. X-rays were done, did not show any bony involvement. MRI was done that showed osteitis, but no osteomyelitis. The patient was started on IV vancomycin and Zosyn. Her diabetes was very uncontrolled. Her HbA1c was around 16. She told me that she has not been able to take her medication due to financial difficulties. In the hospital, she was restarted on her metformin 500 twice a day and glyburide 5 mg once a day which was a new medication for her. Her glycemia has been very well controlled in the hospital, and I think this combination is working well for her. She was seen by Surgery, who performed incision and drainage on the toe. Also, samples and cultures were taken. She was also seen by ID, and the plan was to discharge her today on oral antibiotics to follow with Dr. Davis as an outpatient in approximately 4 days. By then, the bone culture would have resulted, and he can redirect the antibiotherapy, and maybe if needed if the bacteria was resistant, she would need a PICC line placement and IV antimicrobial therapy, but for now, she can go home on the prescribed oral antibiotics. Also, I instructed her to take glyburide, which she is on here in this hospital since her glucose is very well controlled. She verbalized understanding. PHYSICAL EXAMINATION: VITAL SIGNS: Her blood pressure is 130/84, heart rate is 96, temperature is 97.8. HEENT: Head is nontraumatic and normocephalic. Pupils are equally reactive. Extraocular movements are intact. Nonicteric sclerae. Well injected conjunctivae. Oral mucosa is normal. Nasal mucosa is normal. NECK: Supple. No adenopathy. No mass. Thyroid is not palpable. Trachea is midline. No supraclavicular lymphadenopathy. HEART: S1 and S2. Regular. No murmur. No gallops. No frictional rubs. No displacement of PMI. LUNGS: Clear to auscultation bilaterally. No wheezes. No rhonchi. No crackles. ABDOMEN: Bowel sounds are positive. Nontender abdomen. No hepatosplenomegaly. EXTREMITIES: No lower extremity edema. Examination of her toe reveals no erythema. LABORATORY DATA: Her blood work showed sodium 141, potassium 3.6, creatinine 0.73. Hemoglobin 9.2, her hemoglobin has been around 10. Platelets of 322. Her iron study showed a percent saturation of 11, a TIBC of 148, and an iron level of 17. ASSESSMENT AND PLAN: This is a 33-year-old female patient, who presented with cellulitis of her left toe, found to have osteitis on MRI, but no osteomyelitis. Microbiology of the wound showed mixed anamaria, few gram-positive cocci, and few gram-positive rods. One blood culture showed coagulase-negative Staphylococcus, most likely contamination. The patient did well with Zosyn and vancomycin. She will be discharged on Cipro and Rifampin, and she should follow up with ID in 3 to 4 days to possibly address her antibiotherapy therapy. Also, she was found to be anemic, and her iron levels were low. I will discharge her on iron supplements. Also, she did well with the addition of glyburide to metformin, so we will discharge her on that medication as well. She will be given prescriptions for these new medications. Job ID: [id number]
== END 2018-10-15 13:37 | disposition home or self-care (01) | DRG 623 ==
LOC: ERS 10:38 → T4-A 13:20
PROVIDERS: ADMIT Internal Medicine; ATTEND Internal Medicine
PROC: 0JBR0ZZ Excision of Left Foot Subcutaneous Tissue and Fascia, Open Approach (ICD-10-PCS; principal; 2018-10-14)
DX: E11.621 Type 2 diabetes mellitus with foot ulcer (principal); M86.8X7 Other osteomyelitis, ankle and foot; E11.69 Type 2 diabetes mellitus with other specified complication; E11.65 Type 2 diabetes mellitus with hyperglycemia; T50.906A Underdosing of unspecified drugs, medicaments and biological substances, initial encounter; Z91.120 Patient's intentional underdosing of medication regimen due to financial hardship; L03.032 Cellulitis of left toe; D64.9 Anemia, unspecified; E11.40 Type 2 diabetes mellitus with diabetic neuropathy, unspecified; P15.8 Other specified birth injuries; L97.529 Non-pressure chronic ulcer of other part of left foot with unspecified severity; E88.09 Other disorders of plasma-protein metabolism, not elsewhere classified; E66.9 Obesity, unspecified; Z68.33 Body mass index [BMI] 33.0-33.9, adult
CPT/HCPCS: 36415; 36416; 80048; 80053; 80202; 81003; 81015; 82570; 83036; 83540; 83550; 83605; 84156; 85025; 85652; 86140; 87040; 87070; 87149; 87205; 96365; 96367; J1650; J2001; J2543; J3370; J3490; J7050

== ENCOUNTER 2019-02-12 14:00 | Emergency (ER) | payer SELFPAY ==
--- NOTE | 2019-02-12 14:44 | RAD ---
XR Knee Lt 4 View STANDARD: 02/12/2019 2:16 PM CLINICAL INDICATION: Fall with left knee pain COMPARISON: None. FINDINGS: Bones: No acute fracture is demonstrated. Joints: No joint capsular distention.. Soft Tissue: No acute abnormality.. IMPRESSION: No acute osseous abnormality..
--- NOTE | 2019-02-12 14:47 | RAD ---
CHEST ONE VIEW: HISTORY: Injury from a fall. COMPARISON: 09/14/2018 FINDINGS: Heart size is normal. Lungs are clear. IMPRESSION: No acute intrathoracic disease. POS: OFF
[2019-02-12 15:01] LABS: #Eosinphils 0.1 thou/uL (0.0-0.7); #Lymphocytes 2.6 thou/uL (1.20-3.40); #Monocytes 0.5 thou/uL (0.11-0.59); #Neutrophils 6.1 thou/uL (1.40-6.50); %Basophils 0.4 % (0.0-1.0); %Eosinophils 1.1 % (0.0-10.0); %Lymphocytes 27.6 % (21.0-51.0); %Monocytes 4.9 % (0.0-10.0); Hemoglobin 11.4 g/dL (12.0-16.0); Mean Corpuscular HGB CONC 35.7 g/dL (32.0-36.0); Mean Corpuscular Hemoglobin 29.5 pg (27.0-31.0); Mean Corpuscular Volume 82.7 fL (78.0-98.0); Mean Platelet Volume 10.1 fL (7.4-10.4); Platelet Count 236 thou/uL (130-400); RBC Distribution Width 11.8 % (11.5-14.5); Red Blood Cell (RBC) Count 3.87 mill/uL (4.20-5.40); White Blood Cell (WBC) Count 9.2 thou/uL (4.8-10.8)
[2019-02-12 15:23] LABS: ALT (SGPT) 11 U/L (8-55); AST (SGOT) 9 U/L (5-34); Albumin 3.1 g/dL (3.5-5.0); Alkaline Phosphatase 99 U/L (40-110); Anion Gap 11 mmol/L (10-20); BUN (Urea Nitrogen) 22 mg/dL (7.0-18.7); Bilirubin, Total 0.3 mg/dL (0.2-1.2); Calc. Creatinine Clearance 0 mL/min (70-130); Calcium 8.6 mg/dL (7.8-10.44); Carbon Dioxide 21 mmol/L (22-29); Chloride 103 mmol/L (98-107); Estimated GFR-MDRD 51; Globulin 3.6 g/dL (2.4-3.5); Potassium 4.4 mmol/L (3.5-5.1); Protein, Total 6.7 g/dL (6.0-8.3); Sodium 131 mmol/L (136-145)
[2019-02-12 15:27] LABS: Glucose 661 mg/dL (70-105)
== END 2019-02-12 16:35 | disposition home or self-care (01) ==
LOC: ERS 14:00
DX: S00.83XA Contusion of other part of head, initial encounter (principal); S50.311A Abrasion of right elbow, initial encounter; E11.65 Type 2 diabetes mellitus with hyperglycemia; M25.562 Pain in left knee; I10 Essential (primary) hypertension; F41.9 Anxiety disorder, unspecified; W01.0XXA Fall on same level from slipping, tripping and stumbling without subsequent striking against object, initial encounter
CPT/HCPCS: 36415; 71045; 80053; 85025

== ENCOUNTER 2019-02-14 14:39 | Emergency (ER) | payer OTHER, SELFPAY ==
--- NOTE | 2019-02-14 16:03 | RAD ---
PA CHEST AND RIGHT RIBS FOUR VIEWS: 02/14/19 HISTORY: Fell at work with rib pain. Heart size and mediastinum are within normal limits. The lungs are clear of infiltrates. No pleural e ffusion or pneumothorax. No rib fractures are identified. IMPRESSION: Negative right ribs. POS: OFF
== END 2019-02-14 16:15 | disposition home or self-care (01) ==
LOC: ERS 14:39
DX: S20.212A Contusion of left front wall of thorax, initial encounter (principal); R10.811 Right upper quadrant abdominal tenderness; I10 Essential (primary) hypertension; E11.9 Type 2 diabetes mellitus without complications; F41.9 Anxiety disorder, unspecified; Z79.84 Long term (current) use of oral hypoglycemic drugs; Z79.899 Other long term (current) drug therapy; W19.XXXA Unspecified fall, initial encounter; Y99.0 Civilian activity done for income or pay

== ENCOUNTER 2019-11-21 09:32 | Emergency (ER) | payer OTHER, SELFPAY ==
[2019-11-21 10:13] LABS: #Eosinphils 0.4 thou/uL (0.0-0.7); #Lymphocytes 2.1 thou/uL (1.20-3.40); #Monocytes 0.3 thou/uL (0.11-0.59); #Neutrophils 3.6 thou/uL (1.40-6.50); %Basophils 0.6 % (0.0-1.0); %Lymphocytes 32.1 % (21.0-51.0); %Monocytes 5.3 % (0.0-10.0); %Neutrophils 56.1 % (42.0-75.0); Hemoglobin 11.9 g/dL (12.0-16.0); Mean Corpuscular HGB CONC 34.5 g/dL (32.0-36.0); Mean Corpuscular Hemoglobin 29.2 pg (27.0-31.0); Mean Corpuscular Volume 84.7 fL (78.0-98.0); Platelet Count 295 thou/uL (130-400); RBC Distribution Width 11.9 % (11.5-14.5); Red Blood Cell (RBC) Count 4.07 mill/uL (4.20-5.40); White Blood Cell (WBC) Count 6.4 thou/uL (4.8-10.8)
[2019-11-21] MEDS ORDERED: Ondansetron PF 4 MG/2 ML Vial ONE (10:22)
[2019-11-21 10:32] LABS: ALT (SGPT) 10 U/L (8-55); AST (SGOT) 10 U/L (5-34); Albumin 2.7 g/dL (3.5-5.0); Alkaline Phosphatase 118 U/L (40-110); Anion Gap 13 mmol/L (10-20); BUN (Urea Nitrogen) 32 mg/dL (7.0-18.7); Bilirubin, Total 0.3 mg/dL (0.2-1.2); Calc. Creatinine Clearance 0 mL/min (70-130); Calcium 7.9 mg/dL (7.8-10.44); Carbon Dioxide 20 mmol/L (22-29); Chloride 105 mmol/L (98-107); Estimated GFR-MDRD 45; Globulin 3.6 g/dL (2.4-3.5); Glucose 419 mg/dL (70-105); Lipase 18 U/L (8-78); Potassium 3.9 mmol/L (3.5-5.1); Protein, Total 6.3 g/dL (6.0-8.3); Sodium 134 mmol/L (136-145)
[2019-11-21 10:42] LABS: BHCG - Serum Negative (NEGATIVE); Pregs Control Background? CLEAR/WHITE (CLR/WHITE); Pregs Control Bar Appear? YES (CONTROL BAR)
== END 2019-11-21 12:13 | disposition home or self-care (01) ==
LOC: ERS 09:32
DX: E86.0 Dehydration (principal); R19.7 Diarrhea, unspecified; I10 Essential (primary) hypertension; E11.9 Type 2 diabetes mellitus without complications; F41.9 Anxiety disorder, unspecified
CPT/HCPCS: 36415; 80053; 83690; 84703; 85025; 96374; J2405

== ENCOUNTER 2020-01-06 00:14 | Emergency (ER) | payer SELFPAY ==
[2020-01-06] MEDS ORDERED: Ondansetron PF 4 MG/2 ML Vial ONE (00:41)
[2020-01-06] MEDS ORDERED: Mag-Al 1200 mg/1200 mg/30 ML UDCUP ONE (00:41)
[2020-01-06] MEDS ORDERED: Lidocaine Viscous Sol 2% 15 ml UD Cup ONE (00:41)
[2020-01-06 00:57] LABS: #Basophils 0.1 thou/uL (0.0-0.2); #Eosinphils 0.3 thou/uL (0.0-0.7); #Lymphocytes 3.1 thou/uL (1.20-3.40); #Monocytes 0.5 thou/uL (0.11-0.59); %Basophils 0.6 % (0.0-1.0); %Eosinophils 2.2 % (0.0-10.0); %Lymphocytes 25.9 % (21.0-51.0); %Monocytes 4.5 % (0.0-10.0); %Neutrophils 66.9 % (42.0-75.0); Hemoglobin 11.6 g/dL (12.0-16.0); Mean Corpuscular HGB CONC 34.1 g/dL (32.0-36.0); Mean Corpuscular Hemoglobin 29.2 pg (27.0-31.0); Mean Corpuscular Volume 85.7 fL (78.0-98.0); Mean Platelet Volume 9.9 fL (7.4-10.4); Platelet Count 303 thou/uL (130-400); Red Blood Cell (RBC) Count 3.97 mill/uL (4.20-5.40)
[2020-01-06 01:19] LABS: ALT (SGPT) 18 U/L (8-55); AST (SGOT) 12 U/L (5-34); Albumin 2.9 g/dL (3.5-5.0); Alkaline Phosphatase 55 U/L (40-110); Anion Gap 13 mmol/L (10-20); BUN (Urea Nitrogen) 44 mg/dL (7.0-18.7); Bilirubin, Total 0.2 mg/dL (0.2-1.2); Calc. Creatinine Clearance 0 mL/min (70-130); Calcium 8.8 mg/dL (7.8-10.44); Carbon Dioxide 27 mmol/L (22-29); Chloride 108 mmol/L (98-107); Estimated GFR-MDRD 40; Globulin 3.3 g/dL (2.4-3.5); Glucose 148 mg/dL (70-105); Lipase 32 U/L (8-78); Potassium 4.2 mmol/L (3.5-5.1); Protein, Total 6.2 g/dL (6.0-8.3); Sodium 144 mmol/L (136-145)
[2020-01-06 02:09] LABS: Pregnancy Test - Urine (BHCG) Negative (Negative); Pregu Control Background? CLEAR/WHITE (CLR/WHITE); Pregu Control Bar Appear? YES (CONTROL BAR)
[2020-01-06 02:11] LABS: Bacteria/HPF 1+ HPF (None Seen); Bilirubin Negative (Negative); Blood, Urine 1+ (Negative); Clarity Turbid (Clear); Glucose, Urine (Dipstick) 70 mg/dL (Negative); Ketone, Urine Negative (Negative); Leukocyte 500 Leu/uL (Negative); Nitrite Negative (Negative); Protein, Urine (Dipstick) 300 mg/dL (Neg-Trace); RBC/HPF 0-3 HPF (0-3); Specific Gravity, Urine 1.021 (1.002-1.036); Urobilinogen Normal mg/dL (Less than 2); WBC/HPF Greater than 50 HPF (0-3)
[2020-01-06 02:14] LABS: Specific Gravity 1.021 (1.002-1.036)
--- NOTE | 2020-01-06 07:51 | RAD ---
XR Chest 1 View Portable HISTORY: Vomiting, chest pain COMPARISON: 02/12/2019 FINDINGS: The heart size is normal. The lungs are well expanded without focal areas of consolidation, pneumothorax or pleural effusions. IMPRESSION: No radiographic evidence of acute cardiopulmonary process.
== END 2020-01-06 03:47 | disposition home or self-care (01) ==
LOC: ERS 00:14
DX: R07.89 Other chest pain (principal); R11.0 Nausea; I10 Essential (primary) hypertension; E11.9 Type 2 diabetes mellitus without complications; F41.9 Anxiety disorder, unspecified; Z79.84 Long term (current) use of oral hypoglycemic drugs; Z79.899 Other long term (current) drug therapy
CPT/HCPCS: 36415; 71045; 80053; 81003; 81015; 81025; 83690; 84484; 85025; 93005; 96374; J2405

== ENCOUNTER 2020-07-18 21:35 | Emergency (ER) | payer SELFPAY ==
[2020-07-18 22:11] LABS: Bilirubin Negative (Negative); Blood, Urine Moderate (Negative); Glucose, Urine (Dipstick) 100 mg/dL (Negative); Ketone, Urine Negative (Negative); Leukocyte Trace (Negative); Nitrite Negative (Negative); Protein, Urine (Dipstick) > or equal to 300 mg/dL (Neg-Trace); Urobilinogen 0.2 mg/dL (Less than 2)
[2020-07-18 22:12] LABS: Pregnancy Test - Urine (BHCG) Negative (Negative); Pregu Control Background? CLEAR/WHITE (CLR/WHITE); Pregu Control Bar Appear? YES (CONTROL BAR)
[2020-07-18 22:14] LABS: Bacteria/HPF 4+ HPF (None Seen); WBC/HPF Greater than 50 HPF (0-3)
[2020-07-18 22:15] LABS: Clarity Cloudy (Clear)
[2020-07-18 22:19] LABS: #Basophils 0.1 thou/uL (0.0-0.2); #Eosinphils 0.1 thou/uL (0.0-0.7); #Lymphocytes 1.7 thou/uL (1.20-3.40); #Monocytes 0.4 thou/uL (0.11-0.59); %Basophils 0.7 % (0.0-1.0); %Lymphocytes 16.6 % (21.0-51.0); %Monocytes 3.5 % (0.0-10.0); %Neutrophils 78.2 % (42.0-75.0); Hemoglobin 9.1 g/dL (12.0-16.0); Mean Corpuscular HGB CONC 33.3 g/dL (32.0-36.0); Mean Corpuscular Hemoglobin 28.2 pg (27.0-31.0); Mean Corpuscular Volume 84.8 fL (78.0-98.0); Mean Platelet Volume 9.7 fL (7.4-10.4); Platelet Count 313 thou/uL (130-400); RBC Distribution Width 11.5 % (11.5-14.5); Red Blood Cell (RBC) Count 3.22 mill/uL (4.20-5.40); White Blood Cell (WBC) Count 10.2 thou/uL (4.8-10.8)
[2020-07-18 22:40] LABS: ALT (SGPT) 13 U/L (8-55); AST (SGOT) 13 U/L (5-34); Alkaline Phosphatase 85 U/L (40-110); Anion Gap 11 mmol/L (10-20); BUN (Urea Nitrogen) 41 mg/dL (7.0-18.7); Bilirubin, Total 0.3 mg/dL (0.2-1.2); Calc. Creatinine Clearance 0 mL/min (70-130); Calcium 8.8 mg/dL (7.8-10.44); Carbon Dioxide 22 mmol/L (22-29); Chloride 114 mmol/L (98-107); Globulin 3.5 g/dL (2.4-3.5); Glucose 113 mg/dL (70-105); Potassium 4.3 mmol/L (3.5-5.1); Protein, Total 6.5 g/dL (6.0-8.3); Sodium 143 mmol/L (136-145)
== END 2020-07-19 00:38 | disposition home or self-care (01) ==
LOC: ERS 21:35
DX: N39.0 Urinary tract infection, site not specified (principal); I10 Essential (primary) hypertension; E11.9 Type 2 diabetes mellitus without complications; Z79.84 Long term (current) use of oral hypoglycemic drugs
CPT/HCPCS: 36415; 80053; 81003; 81015; 81025; 85025; 87077; 87086; 87186; 93005

== ENCOUNTER 2020-07-20 11:24 | Emergency (ER) | payer SELFPAY ==
[2020-07-20 11:57] LABS: Bilirubin Negative (Negative); Blood, Urine Moderate (Negative); Glucose, Urine (Dipstick) 500 mg/dL (Negative); Ketone, Urine Negative (Negative); Leukocyte Negative (Negative); Nitrite Negative (Negative); Protein, Urine (Dipstick) > or equal to 300 mg/dL (Neg-Trace); Specific Gravity, Urine 1.015 (1.005-1.030); Urobilinogen 0.2 mg/dL (Less than 2)
[2020-07-20 11:58] LABS: Clarity Clear (Clear)
[2020-07-20 12:12] LABS: Squamous Epithelial 0-3 HPF (0-3); WBC/HPF 21-50 HPF (0-3)
[2020-07-20] MEDS ORDERED: cefTRIAXone\\ROCEPHIN 1 GM VIAL ONE (12:13)
[2020-07-20] MEDS ORDERED: Ondansetron PF 4 MG/2 ML Vial ONE (12:13)
[2020-07-20 12:14] LABS: Bacteria/HPF 1+ HPF (None Seen)
[2020-07-20 12:17] LABS: #Basophils 0.1 thou/uL (0.0-0.2); #Eosinphils 0.2 thou/uL (0.0-0.7); #Lymphocytes 1.8 thou/uL (1.20-3.40); #Monocytes 0.4 thou/uL (0.11-0.59); #Neutrophils 7.1 thou/uL (1.40-6.50); %Basophils 0.7 % (0.0-1.0); %Eosinophils 1.7 % (0.0-10.0); %Lymphocytes 19.1 % (21.0-51.0); %Monocytes 4.2 % (0.0-10.0); %Neutrophils 74.3 % (42.0-75.0); Hemoglobin 8.7 g/dL (12.0-16.0); Mean Corpuscular HGB CONC 34.4 g/dL (32.0-36.0); Mean Corpuscular Hemoglobin 29.4 pg (27.0-31.0); Mean Corpuscular Volume 85.5 fL (78.0-98.0); Mean Platelet Volume 9.7 fL (7.4-10.4); Platelet Count 258 thou/uL (130-400); RBC Distribution Width 11.2 % (11.5-14.5); Red Blood Cell (RBC) Count 2.97 mill/uL (4.20-5.40); White Blood Cell (WBC) Count 9.5 thou/uL (4.8-10.8)
[2020-07-20 12:47] LABS: ALT (SGPT) 12 U/L (8-55); AST (SGOT) 11 U/L (5-34); Albumin 2.6 g/dL (3.5-5.0); Alkaline Phosphatase 78 U/L (40-110); Anion Gap 9 mmol/L (10-20); BUN (Urea Nitrogen) 40 mg/dL (7.0-18.7); Bilirubin, Total 0.3 mg/dL (0.2-1.2); Calc. Creatinine Clearance 0 mL/min (70-130); Calcium 8.2 mg/dL (7.8-10.44); Carbon Dioxide 21 mmol/L (22-29); Chloride 111 mmol/L (98-107); Globulin 3.4 g/dL (2.4-3.5); Glucose 258 mg/dL (70-105); Lipase 18 U/L (8-78); Potassium 4.3 mmol/L (3.5-5.1); Sodium 137 mmol/L (136-145)
[2020-07-20] MEDS ORDERED: Morphine 4 MG/ML VIAL ONE (13:03)
== END 2020-07-20 14:12 | disposition home or self-care (01) ==
LOC: ERS 11:24
DX: N39.0 Urinary tract infection, site not specified (principal); N13.30 Unspecified hydronephrosis; Z79.899 Other long term (current) drug therapy; Z79.84 Long term (current) use of oral hypoglycemic drugs; I10 Essential (primary) hypertension; E11.9 Type 2 diabetes mellitus without complications
CPT/HCPCS: 74176; 80053; 81003; 81015; 83690; 85025; 96365; 96368; 96375; J0696; J2270; J2405

== ENCOUNTER 2021-05-06 02:50 | Inpatient (IN) | payer SELFPAY ==
[2021-05-06] MEDS ORDERED: Morphine 4 MG/ML VIAL ONE (03:56)
[2021-05-06] MEDS ORDERED: Ondansetron PF 4 MG/2 ML Vial ONE (03:56)
[2021-05-06] MEDS ORDERED: Acetaminophen 500 MG TAB ONE (03:56)
[2021-05-06] MEDS ORDERED: Cefepime 2 GM VIAL ONE (04:38)
[2021-05-06 04:51] LABS: Hemoglobin 9.4 g/dL (12.0-16.0); Mean Corpuscular HGB CONC 34.3 g/dL (32.0-36.0); Mean Corpuscular Hemoglobin 29.8 pg (27.0-31.0); Mean Corpuscular Volume 86.7 fL (78.0-98.0); Mean Platelet Volume 10.3 fL (7.4-10.4); Platelet Count 250 thou/uL (130-400); RBC Distribution Width 11.7 % (11.5-14.5); Red Blood Cell (RBC) Count 3.17 mill/uL (4.20-5.40); White Blood Cell (WBC) Count 13.5 thou/uL (4.8-10.8)
[2021-05-06 04:52] LABS: ALT (SGPT) 18 U/L (8-55); AST (SGOT) 17 U/L (5-34); Albumin 2.6 g/dL (3.5-5.0); Alkaline Phosphatase 81 U/L (40-110); Anion Gap 14 mmol/L (10-20); BUN (Urea Nitrogen) 64 mg/dL (7.0-18.7); Bilirubin, Total 0.2 mg/dL (0.2-1.2); Calc. Creatinine Clearance 0 mL/min (70-130); Calcium 8.1 mg/dL (7.8-10.44); Carbon Dioxide 14 mmol/L (22-29); Chloride 114 mmol/L (98-107); Globulin 3.5 g/dL (2.4-3.5); Glucose 199 mg/dL (70-105); Lipase 16 U/L (8-78); Potassium 4.9 mmol/L (3.5-5.1); Protein, Total 6.1 g/dL (6.0-8.3); Sodium 137 mmol/L (136-145)
[2021-05-06 05:14] LABS: Bilirubin Negative (Negative); Blood, Urine 1+ (Negative); Clarity Clear (Clear); Glucose, Urine (Dipstick) 300 mg/dL (Negative); Ketone, Urine Negative (Negative); Leukocyte Negative Leu/uL (Negative); Nitrite Negative (Negative); Protein, Urine (Dipstick) 300 mg/dL (Neg-Trace); Specific Gravity, Urine 1.013 (1.002-1.036); Squamous Epithelial 0-3 HPF (0-3); Urobilinogen Normal mg/dL (Less than 2); pH, Urine 6.5 (5.0-9.0)
[2021-05-06 05:17] LABS: Bacteria/HPF Rare-Few HPF (None Seen)
[2021-05-06 05:29] LABS: Band 25 % (5-11); Eosinophils 1 % (0-10); Lymphocytes 9 % (21-51); MDiff Complete? YES; Monocytes 9 % (0-10); Neutrophil 56 % (42-75)
[2021-05-06] MEDS ORDERED: Vancomycin HCl 1 GM in Sodium Chloride 0.9% 250 ML 250 ML IVPB SCH (06:00)
[2021-05-06] MEDS ORDERED: Ondansetron PF 4 MG/2 ML Vial IVP PRN (07:14)
[2021-05-06] MEDS ORDERED: Morphine 4 MG/ML VIAL SLOW IVP PRN (09:07)
[2021-05-06] MEDS ORDERED: Bisacodyl 5 MG TAB PO PRN (09:08)
[2021-05-06] MEDS ORDERED: Senokot S 8.6-50 MG TAB PO PRN (09:08)
[2021-05-06] MEDS ORDERED: Bisacodyl 10 MG SUPP PR PRN (09:08)
[2021-05-06] MEDS ORDERED: Enoxaparin Sodium 30 MG/0.3 ML SYRINGE SC SCH (09:15)
[2021-05-06] MEDS ORDERED: Vancomycin 1 GM in Premix Bag 1 BAG IVPB SCH ×2 (10:00→22:00)
[2021-05-06] MEDS ORDERED: Cefepime 2 GM in Sodium Chloride 0.9% 100 ML IVPB SCH ×2 (10:00→21:00)
[2021-05-06] MEDS: Sodium Chloride 0.9% 1,000 ML IV SCH ×2 (11:12→23:44)
[2021-05-06] MEDS ORDERED: FLU VACC QS2021-22(6MOS UP)/PF 60 MCG/0.5 ML SYRINGE IM ONE (11:45)
[2021-05-06] MEDS: Heparin 5,000 UNITS/ML VIAL SC SCH ×2 (14:25→20:40)
[2021-05-06] MEDS: Gabapentin 100 MG CAP PO PRN ×2 (14:31→20:38)
[2021-05-06 18:36] LABS: SARS-CoV-2 PCR by NAA Not Detected (NotDetected)
[2021-05-06] MEDS ORDERED: Dextrose 50% Abboject 50 ML SYRINGE SLOW IVP PRN (18:52)
[2021-05-06] MEDS ORDERED: Dextrose 5% in Water 1,000 ML IV PRN (18:52)
[2021-05-06] MEDS: HumaLOG 300 UNITS/3 ML VIAL SC PRN (22:17)
[2021-05-07 06:01] LABS: Vancomycin, Random 22.1 ug/mL (See Comment)
[2021-05-07 06:07] LABS: Anion Gap 13 mmol/L (10-20); BUN (Urea Nitrogen) 59 mg/dL (7.0-18.7); Calc. Creatinine Clearance 28 mL/min (70-130); Calcium 7.1 mg/dL (7.8-10.44); Carbon Dioxide 14 mmol/L (22-29); Chloride 114 mmol/L (98-107); Glucose 116 mg/dL (70-105); Potassium 4.7 mmol/L (3.5-5.1); Sodium 136 mmol/L (136-145)
[2021-05-07] MEDS: Cefepime 1 GM in Sodium Chloride 0.9% 100 ML IVPB SCH (06:21)
[2021-05-07 07:01] LABS: Thyroid Stimulating Hormone 2.6578 uIU/mL (0.35-4.94)
[2021-05-07] MEDS: Sodium Chloride 0.9% 1,000 ML IV SCH (07:45)
[2021-05-07] MEDS: Heparin 5,000 UNITS/ML VIAL SC SCH ×3 (08:26→20:26)
[2021-05-07] MEDS: Sodium Bicarbonate 150 MEQ in Dextrose 5% in Water 1,000 ML IV SCH ×2 (08:32→20:25)
[2021-05-07 08:48] LABS: Creatinine, Urine 33.8 mg/dL (47-110)
[2021-05-07] MEDS ORDERED: Enoxaparin Sodium 30 MG/0.3 ML SYRINGE SC SCH (09:00)
[2021-05-07] MEDS ORDERED: Ferrous Gluconate 324 MG TAB PO SCH (10:00)
[2021-05-07] MEDS ORDERED: Ascorbic Acid 500 mg Chewable Tablet PO SCH (10:00)
[2021-05-07] MEDS ORDERED: Docusate 100 MG CAP PO SCH (10:00)
[2021-05-07] MEDS: HumaLOG 300 UNITS/3 ML VIAL SC PRN ×2 (11:31→17:35)
[2021-05-07] MEDS: Gabapentin 100 MG CAP PO PRN (17:13)
[2021-05-07 18:30] LABS: Vancomycin, Random 18.2 ug/mL (See Comment)
[2021-05-07 18:57] LABS: Creatinine, Urine 21.38 mg/dL (47-110)
[2021-05-07] MEDS ORDERED: Vancomycin HCl 500 MG in Sodium Chloride 0.9% 100 ML IVPB SCH (19:00)
[2021-05-07] MEDS: Sodium Bicarbonate Tab 325 MG TAB PO SCH (20:26)
[2021-05-07] MEDS: Docusate 100 MG CAP PO SCH (20:26)
[2021-05-08] MEDS: Gabapentin 100 MG CAP PO PRN ×2 (03:32→16:03)
[2021-05-08] MEDS: Cefepime 1 GM in Sodium Chloride 0.9% 100 ML IVPB SCH (05:27)
[2021-05-08] MEDS: HumaLOG 300 UNITS/3 ML VIAL SC PRN ×3 (05:29→21:09)
[2021-05-08] MEDS: traMADol HCl 50 MG TAB PO PRN ×2 (05:34→16:04)
[2021-05-08] MEDS ORDERED: hydrALAZINE 20 MG/ML VIAL SLOW IVP PRN (08:30)
[2021-05-08] MEDS ORDERED: Sodium Chloride 0.65% Nasal 44 ML BOT EA NARE PRN (08:30)
[2021-05-08] MEDS ORDERED: Loperamide HCl 2 MG CAP PO PRN (08:30)
[2021-05-08] MEDS ORDERED: GUAIFENESIN SF SOLN 200 MG/10 ML UDCUP PO PRN (08:30)
[2021-05-08] MEDS ORDERED: Artificial Tear Sol 15 ML BOT EA EYE PRN (08:30)
[2021-05-08] MEDS ORDERED: Calcium Carbonate 500 MG ChewTAB PO PRN (08:30)
[2021-05-08] MEDS ORDERED: Moisturizing Cream (Eucerin) 113 GM JAR TOP PRN (08:30)
[2021-05-08] MEDS ORDERED: Melatonin 3 MG TAB PO PRN (08:31)
[2021-05-08] MEDS: Ascorbic Acid 500 mg Chewable Tablet PO SCH (08:50)
[2021-05-08] MEDS: Cholecalciferol 1,000 UNITS (25 MCG) TAB PO SCH (08:50)
[2021-05-08] MEDS: Ferrous Gluconate 324 MG TAB PO SCH (08:50)
[2021-05-08] MEDS: Docusate 100 MG CAP PO SCH ×2 (08:51→21:09)
[2021-05-08] MEDS: Calcitriol 0.25 MCG CAP PO SCH (08:51)
[2021-05-08] MEDS: Heparin 5,000 UNITS/ML VIAL SC SCH ×3 (08:51→21:09)
[2021-05-08] MEDS: Sodium Bicarbonate 150 MEQ in Dextrose 5% in Water 1,000 ML IV SCH ×2 (08:52→21:10)
[2021-05-08] MEDS: Sodium Bicarbonate Tab 325 MG TAB PO SCH ×3 (08:52→21:08)
[2021-05-08] MEDS: Fentanyl 100 MCG/2 ML VIAL SLOW IVP PRN ×2 (09:01→23:22)
[2021-05-08] MEDS: Ergocalciferol 1.25 MG(50,000 UNITS) CAP PO SCH (10:29)
[2021-05-08 18:33] LABS: Vancomycin, Random 19.5 ug/mL (See Comment)
[2021-05-08] MEDS ORDERED: Vancomycin HCl 500 MG in Sodium Chloride 0.9% 100 ML IVPB SCH (23:30)
[2021-05-09] MEDS ORDERED: ALPRAZolam 0.25 MG TAB PO SCH (03:30)
[2021-05-09] MEDS: Labetalol HCl 100 MG/20 ML VIAL SLOW IVP PRN (03:39)
[2021-05-09 03:44] LABS: #Eosinphils 0.3 thou/uL (0.0-0.7); #Lymphocytes 2.3 thou/uL (1.20-3.40); #Monocytes 0.6 thou/uL (0.11-0.59); #Neutrophils 7.3 thou/uL (1.40-6.50); %Basophils 0.4 % (0.0-1.0); %Eosinophils 2.4 % (0.0-10.0); %Lymphocytes 21.9 % (21.0-51.0); %Monocytes 5.7 % (0.0-10.0); %Neutrophils 69.6 % (42.0-75.0); Hemoglobin 7.1 g/dL (12.0-16.0); Mean Corpuscular HGB CONC 33.7 g/dL (32.0-36.0); Mean Corpuscular Hemoglobin 29.4 pg (27.0-31.0); Mean Corpuscular Volume 87.3 fL (78.0-98.0); Mean Platelet Volume 9.9 fL (7.4-10.4); Platelet Count 213 thou/uL (130-400); RBC Distribution Width 11.6 % (11.5-14.5); Red Blood Cell (RBC) Count 2.42 mill/uL (4.20-5.40); White Blood Cell (WBC) Count 10.5 thou/uL (4.8-10.8)
[2021-05-09 04:09] LABS: ALT (SGPT) 15 U/L (8-55); AST (SGOT) 13 U/L (5-34); Albumin 2.1 g/dL (3.5-5.0); Alkaline Phosphatase 76 U/L (40-110); Anion Gap 15 mmol/L (10-20); BUN (Urea Nitrogen) 50 mg/dL (7.0-18.7); Bilirubin, Total 0.2 mg/dL (0.2-1.2); CRP (Inflammatory) 29.81 mg/dL (= or < 0.5); Calc. Creatinine Clearance 31 mL/min (70-130); Calcium 7.3 mg/dL (7.8-10.44); Carbon Dioxide 22 mmol/L (22-29); Chloride 105 mmol/L (98-107); Globulin 3.4 g/dL (2.4-3.5); Glucose 167 mg/dL (70-105); Magnesium 1.8 mg/dL (1.6-2.6); Phosphorus 4.5 mg/dL (2.3-4.7); Potassium 3.6 mmol/L (3.5-5.1); Protein, Total 5.5 g/dL (6.0-8.3); Sodium 138 mmol/L (136-145)
[2021-05-09] MEDS: Cefepime 1 GM in Sodium Chloride 0.9% 100 ML IVPB SCH (06:58)
[2021-05-09] MEDS: HumaLOG 300 UNITS/3 ML VIAL SC PRN ×4 (06:58→21:10)
[2021-05-09] MEDS: Heparin 5,000 UNITS/ML VIAL SC SCH ×3 (09:32→21:29)
[2021-05-09] MEDS: Calcitriol 0.25 MCG CAP PO SCH (09:34)
[2021-05-09] MEDS: Docusate 100 MG CAP PO SCH ×2 (09:34→21:09)
[2021-05-09] MEDS: Ascorbic Acid 500 mg Chewable Tablet PO SCH (09:34)
[2021-05-09] MEDS: Cholecalciferol 1,000 UNITS (25 MCG) TAB PO SCH (09:35)
[2021-05-09] MEDS: Ferrous Gluconate 324 MG TAB PO SCH (09:35)
[2021-05-09] MEDS: Folic Acid/Vit B Comp W-C PO SCH (11:07)
[2021-05-09] MEDS ORDERED: Gabapentin 100 MG CAP PO PRN (13:15)
[2021-05-09] MEDS: Sodium Bicarbonate Tab 325 MG TAB PO SCH ×3 (14:25→21:09)
[2021-05-09] MEDS: Sodium Bicarbonate 150 MEQ in Dextrose 5% in Water 1,000 ML IV SCH ×2 (15:50→21:21)
[2021-05-09] MEDS: traMADol HCl 50 MG TAB PO PRN (21:17)
[2021-05-09 23:48] LABS: Vancomycin, Random 20.3 ug/mL (See Comment)
[2021-05-10] MEDS: Sodium Bicarbonate 150 MEQ in Dextrose 5% in Water 1,000 ML IV SCH ×2 (04:39→18:05)
[2021-05-10] MEDS: HumaLOG 300 UNITS/3 ML VIAL SC PRN ×3 (06:29→17:23)
[2021-05-10] MEDS: Cefepime 1 GM in Sodium Chloride 0.9% 100 ML IVPB SCH (06:30)
[2021-05-10] MEDS ORDERED: Vancomycin HCl 500 MG in Sodium Chloride 0.9% 100 ML IVPB SCH (09:00)
[2021-05-10] MEDS: Ferrous Gluconate 324 MG TAB PO SCH (09:35)
[2021-05-10] MEDS: Ascorbic Acid 500 mg Chewable Tablet PO SCH (09:35)
[2021-05-10] MEDS: Cholecalciferol 1,000 UNITS (25 MCG) TAB PO SCH (09:36)
[2021-05-10] MEDS: Folic Acid/Vit B Comp W-C PO SCH (09:36)
[2021-05-10] MEDS: Calcitriol 0.25 MCG CAP PO SCH (09:36)
[2021-05-10] MEDS: Docusate 100 MG CAP PO SCH ×2 (09:36→21:22)
[2021-05-10] MEDS: Sodium Bicarbonate Tab 325 MG TAB PO SCH ×3 (09:36→21:22)
[2021-05-10] MEDS: Heparin 5,000 UNITS/ML VIAL SC SCH ×3 (09:36→21:22)
[2021-05-10] MEDS: Sodium Chloride 0.9% 1,000 ML IV SCH (18:14)
[2021-05-10] MEDS: cefTRIAXone\\ROCEPHIN 2 GM in Sodium Chloride 0.9% 100 ML IVPB SCH (18:14)
[2021-05-10] MEDS: traMADol HCl 50 MG TAB PO PRN (21:46)
[2021-05-11 05:17] LABS: #Eosinphils 0.3 thou/uL (0.0-0.7); #Lymphocytes 1.9 thou/uL (1.20-3.40); #Monocytes 0.8 thou/uL (0.11-0.59); #Neutrophils 6.2 thou/uL (1.40-6.50); %Basophils 0.4 % (0.0-1.0); %Eosinophils 2.8 % (0.0-10.0); %Lymphocytes 20.8 % (21.0-51.0); %Monocytes 8.3 % (0.0-10.0); %Neutrophils 67.7 % (42.0-75.0); Hemoglobin 6.4 g/dL (12.0-16.0); Mean Corpuscular HGB CONC 32.3 g/dL (32.0-36.0); Mean Corpuscular Hemoglobin 28.8 pg (27.0-31.0); Mean Corpuscular Volume 89.1 fL (78.0-98.0); Mean Platelet Volume 8.8 fL (7.4-10.4); Platelet Count 290 thou/uL (130-400); RBC Distribution Width 11.5 % (11.5-14.5); Red Blood Cell (RBC) Count 2.22 mill/uL (4.20-5.40); White Blood Cell (WBC) Count 9.2 thou/uL (4.8-10.8)
[2021-05-11 05:38] LABS: Anion Gap 13 mmol/L (10-20); BUN (Urea Nitrogen) 43 mg/dL (7.0-18.7); Calc. Creatinine Clearance 32 mL/min (70-130); Calcium 7.3 mg/dL (7.8-10.44); Carbon Dioxide 27 mmol/L (22-29); Chloride 104 mmol/L (98-107); Glucose 168 mg/dL (70-105); Potassium 3.6 mmol/L (3.5-5.1); Sodium 140 mmol/L (136-145)
[2021-05-11] MEDS: HumaLOG 300 UNITS/3 ML VIAL SC PRN (07:36)
[2021-05-11] MEDS ORDERED: Heparin 10,000 UNITS/ 10 ML VIAL ONE (08:48)
[2021-05-11] MEDS: Sodium Chloride 0.9% 1,000 ML IV SCH (09:29)
[2021-05-11] MEDS: Ascorbic Acid 500 mg Chewable Tablet PO SCH (09:30)
[2021-05-11] MEDS: Ferrous Gluconate 324 MG TAB PO SCH (09:30)
[2021-05-11] MEDS: Calcitriol 0.25 MCG CAP PO SCH (09:30)
[2021-05-11] MEDS: Heparin 5,000 UNITS/ML VIAL SC SCH (09:31)
[2021-05-11] MEDS: Docusate 100 MG CAP PO SCH ×2 (09:31→22:06)
[2021-05-11] MEDS: Folic Acid/Vit B Comp W-C PO SCH (09:31)
[2021-05-11] MEDS: Cholecalciferol 1,000 UNITS (25 MCG) TAB PO SCH (09:31)
[2021-05-11] MEDS: Sodium Bicarbonate Tab 325 MG TAB PO SCH (09:32)
[2021-05-11] MEDS ORDERED: CEFAZOLIN 2 GM, IV Admixture Fee-Chemo 1 UNITS in Sodium Chloride 0.9% 100 ML IVPB SCH (11:45)
[2021-05-11 12:00] LABS: Troponin I 0.013 ng/mL (< 0.028)
[2021-05-11] MEDS ORDERED: Tuberculin PPD 0.1 ML VIAL I-DERMAL SCH (12:00)
[2021-05-11] MEDS: Albumin 25% 25 GM/100 ML BOT IVPB SCH ×2 (12:34→18:34)
[2021-05-11 14:57] LABS: HBSAg Index 0.16 S/CO (0-0.99); Hep B Surf Ag Non-Reactive S/CO (NonReactive)
[2021-05-11 17:12] LABS: Reticulocyte Count 1.1 % (0.5-1.5)
[2021-05-11 17:33] LABS: Iron 16 ug/dL (50-170); Iron Binding Capacity, Total 128 mcg/dL (265-497)
[2021-05-11] MEDS: Carvedilol 6.25 MG TAB PO SCH (18:33)
[2021-05-11] MEDS: cefTRIAXone\\ROCEPHIN 2 GM in Sodium Chloride 0.9% 100 ML IVPB SCH (19:43)
[2021-05-11] MEDS: EPOETIN ALFA-EPBX (ESRD) 3,000 UNIT/ML VIAL SC SCH (22:06)
[2021-05-11] MEDS: EPOETIN ALFA-EPBX (ESRD) 2,000 UNIT/ML VIAL SC SCH (22:07)
[2021-05-12] MEDS: Albumin 25% 25 GM/100 ML BOT IVPB SCH ×3 (02:27→12:32)
[2021-05-12] MEDS: Labetalol HCl 100 MG/20 ML VIAL SLOW IVP PRN ×2 (05:28→13:46)
[2021-05-12 05:29] LABS: #Eosinphils 0.2 thou/uL (0.0-0.7); #Lymphocytes 1.7 thou/uL (1.20-3.40); #Monocytes 0.8 thou/uL (0.11-0.59); #Neutrophils 7.6 thou/uL (1.40-6.50); %Basophils 0.3 % (0.0-1.0); %Eosinophils 2.2 % (0.0-10.0); %Lymphocytes 16.3 % (21.0-51.0); %Monocytes 7.4 % (0.0-10.0); %Neutrophils 73.7 % (42.0-75.0); Hemoglobin 8.5 g/dL (12.0-16.0); Mean Corpuscular HGB CONC 32.5 g/dL (32.0-36.0); Mean Platelet Volume 8.3 fL (7.4-10.4); Platelet Count 299 thou/uL (130-400); Red Blood Cell (RBC) Count 2.94 mill/uL (4.20-5.40); White Blood Cell (WBC) Count 10.3 thou/uL (4.8-10.8)
[2021-05-12 05:48] LABS: Anion Gap 10 mmol/L (10-20); BUN (Urea Nitrogen) 25 mg/dL (7.0-18.7); Calc. Creatinine Clearance 49 mL/min (70-130); Carbon Dioxide 28 mmol/L (22-29); Chloride 105 mmol/L (98-107); Glucose 140 mg/dL (70-105); Potassium 3.3 mmol/L (3.5-5.1); Sodium 140 mmol/L (136-145)
[2021-05-12] MEDS: Carvedilol 6.25 MG TAB PO SCH ×2 (10:29→18:51)
[2021-05-12] MEDS: Ferrous Gluconate 324 MG TAB PO SCH (10:30)
[2021-05-12] MEDS: Ascorbic Acid 500 mg Chewable Tablet PO SCH (10:30)
[2021-05-12] MEDS: Cholecalciferol 1,000 UNITS (25 MCG) TAB PO SCH (10:30)
[2021-05-12] MEDS: Docusate 100 MG CAP PO SCH ×2 (10:30→20:15)
[2021-05-12] MEDS: Calcitriol 0.25 MCG CAP PO SCH (10:47)
[2021-05-12] MEDS: Folic Acid/Vit B Comp W-C PO SCH (10:47)
[2021-05-12] MEDS: cefTRIAXone\\ROCEPHIN 2 GM in Sodium Chloride 0.9% 100 ML IVPB SCH (18:50)
[2021-05-12] MEDS: traMADol HCl 50 MG TAB PO PRN (18:55)
[2021-05-12] MEDS: hydrALAZINE 20 MG/ML VIAL SLOW IVP PRN (20:22)
[2021-05-13 06:22] LABS: #Basophils 0.1 thou/uL (0.0-0.2); #Eosinphils 0.3 thou/uL (0.0-0.7); #Monocytes 0.8 thou/uL (0.11-0.59); #Neutrophils 6.5 thou/uL (1.40-6.50); %Basophils 0.7 % (0.0-1.0); %Eosinophils 3.1 % (0.0-10.0); %Lymphocytes 20.8 % (21.0-51.0); %Monocytes 8.1 % (0.0-10.0); %Neutrophils 67.3 % (42.0-75.0); Hemoglobin 8.8 g/dL (12.0-16.0); Mean Corpuscular HGB CONC 33.7 g/dL (32.0-36.0); Mean Corpuscular Hemoglobin 30.1 pg (27.0-31.0); Mean Corpuscular Volume 89.4 fL (78.0-98.0); Mean Platelet Volume 8.5 fL (7.4-10.4); Platelet Count 309 thou/uL (130-400); RBC Distribution Width 12.2 % (11.5-14.5); Red Blood Cell (RBC) Count 2.94 mill/uL (4.20-5.40); White Blood Cell (WBC) Count 9.7 thou/uL (4.8-10.8)
[2021-05-13 06:42] LABS: Anion Gap 11 mmol/L (10-20); BUN (Urea Nitrogen) 30 mg/dL (7.0-18.7); Calc. Creatinine Clearance 38 mL/min (70-130); Calcium 8.3 mg/dL (7.8-10.44); Carbon Dioxide 27 mmol/L (22-29); Chloride 107 mmol/L (98-107); Glucose 136 mg/dL (70-105); Potassium 3.3 mmol/L (3.5-5.1); Sodium 142 mmol/L (136-145)
[2021-05-13 07:08] LABS: HBSAB Concentration Less than 8.00 mIU/mL; HBSAg Index 0.16 S/CO (0-0.99); Hep B Core Total Ab Non-Reactive (NonReactive); Hep B Core Total Index 0.06 S/CO (0-0.79); Hep B Surf AB Non-Reactive (NonReactive); Hep B Surf Ag Non-Reactive S/CO (NonReactive); Hep C IgG Ab Non-Reactive (NonReactive); Hep C Index 0.15 S/CO (0-0.79)
[2021-05-13] MEDS ORDERED: READ PPD TEST SITE PO SCH (09:00)
[2021-05-13] MEDS ORDERED: Heparin 10,000 UNITS/ 10 ML VIAL ONE ×2 (10:11→10:16)
[2021-05-13] MEDS: Carvedilol 6.25 MG TAB PO SCH ×2 (10:14→16:50)
[2021-05-13] MEDS: Ferrous Gluconate 324 MG TAB PO SCH (10:14)
[2021-05-13] MEDS: Folic Acid/Vit B Comp W-C PO SCH (10:15)
[2021-05-13] MEDS: Ascorbic Acid 500 mg Chewable Tablet PO SCH (10:15)
[2021-05-13] MEDS: Calcitriol 0.25 MCG CAP PO SCH (10:15)
[2021-05-13] MEDS: Docusate 100 MG CAP PO SCH ×2 (10:15→19:41)
[2021-05-13] MEDS: hydrALAZINE 20 MG/ML VIAL SLOW IVP PRN (14:09)
[2021-05-13] MEDS: HumaLOG 300 UNITS/3 ML VIAL SC PRN (16:50)
[2021-05-13] MEDS: cefTRIAXone\\ROCEPHIN 2 GM in Sodium Chloride 0.9% 100 ML IVPB SCH (16:50)
[2021-05-13] MEDS: traMADol HCl 50 MG TAB PO PRN (17:45)
[2021-05-13 21:23] LABS: SARS-CoV-2 PCR by NAA Not Detected (NotDetected)
[2021-05-14] MEDS: Ascorbic Acid 500 mg Chewable Tablet PO SCH (08:33)
[2021-05-14] MEDS: Carvedilol 6.25 MG TAB PO SCH ×2 (08:33→16:58)
[2021-05-14] MEDS: Docusate 100 MG CAP PO SCH ×2 (08:33→20:15)
[2021-05-14] MEDS: Calcitriol 0.25 MCG CAP PO SCH (08:33)
[2021-05-14] MEDS: Ferrous Gluconate 324 MG TAB PO SCH (08:33)
[2021-05-14] MEDS: Folic Acid/Vit B Comp W-C PO SCH (08:34)
[2021-05-14 10:15] LABS: Anion Gap 14 mmol/L (10-20); BUN (Urea Nitrogen) 20 mg/dL (7.0-18.7); Calc. Creatinine Clearance 40 mL/min (70-130); Calcium 7.9 mg/dL (7.8-10.44); Carbon Dioxide 24 mmol/L (22-29); Chloride 104 mmol/L (98-107); Glucose 196 mg/dL (70-105); Potassium 3.4 mmol/L (3.5-5.1); Sodium 139 mmol/L (136-145)
[2021-05-14] MEDS: HumaLOG 300 UNITS/3 ML VIAL SC PRN ×3 (13:26→20:35)
[2021-05-14] MEDS: cefTRIAXone\\ROCEPHIN 2 GM in Sodium Chloride 0.9% 100 ML IVPB SCH (17:52)
[2021-05-14] MEDS ORDERED: NPH, Human Insulin Isophane 300 UNIT/3 ML VIAL SC SCH (18:00)
[2021-05-14] MEDS: Senokot S 8.6-50 MG TAB PO SCH (20:15)
[2021-05-15] MEDS: Acetaminophen 325 MG TAB PO PRN ×2 (04:57→22:14)
[2021-05-15] MEDS: hydrALAZINE 20 MG/ML VIAL SLOW IVP PRN (05:00)
[2021-05-15 05:47] LABS: #Basophils 0.1 thou/uL (0.0-0.2); #Eosinphils 0.2 thou/uL (0.0-0.7); #Lymphocytes 2.4 thou/uL (1.20-3.40); #Monocytes 0.8 thou/uL (0.11-0.59); #Neutrophils 8.6 thou/uL (1.40-6.50); %Basophils 0.4 % (0.0-1.0); %Lymphocytes 19.6 % (21.0-51.0); %Monocytes 6.8 % (0.0-10.0); %Neutrophils 71.1 % (42.0-75.0); Hemoglobin 9.4 g/dL (12.0-16.0); Mean Corpuscular HGB CONC 32.4 g/dL (32.0-36.0); Mean Corpuscular Hemoglobin 29.1 pg (27.0-31.0); Mean Corpuscular Volume 89.8 fL (78.0-98.0); Mean Platelet Volume 8.5 fL (7.4-10.4); Platelet Count 334 thou/uL (130-400); RBC Distribution Width 12.3 % (11.5-14.5); Red Blood Cell (RBC) Count 3.23 mill/uL (4.20-5.40); White Blood Cell (WBC) Count 12.1 thou/uL (4.8-10.8)
[2021-05-15 06:07] LABS: Anion Gap 13 mmol/L (10-20); BUN (Urea Nitrogen) 30 mg/dL (7.0-18.7); Calc. Creatinine Clearance 33 mL/min (70-130); Calcium 7.9 mg/dL (7.8-10.44); Carbon Dioxide 22 mmol/L (22-29); Chloride 106 mmol/L (98-107); Glucose 109 mg/dL (70-105); Potassium 3.2 mmol/L (3.5-5.1); Sodium 138 mmol/L (136-145)
[2021-05-15] MEDS: Ascorbic Acid 500 mg Chewable Tablet PO SCH (08:44)
[2021-05-15] MEDS: Carvedilol 6.25 MG TAB PO SCH ×2 (08:44→16:47)
[2021-05-15] MEDS: Docusate 100 MG CAP PO SCH ×2 (08:44→20:53)
[2021-05-15] MEDS: Ferrous Gluconate 324 MG TAB PO SCH (08:45)
[2021-05-15] MEDS: Folic Acid/Vit B Comp W-C PO SCH (08:45)
[2021-05-15] MEDS: Ergocalciferol 1.25 MG(50,000 UNITS) CAP PO SCH (08:45)
[2021-05-15] MEDS: Senokot S 8.6-50 MG TAB PO SCH ×2 (08:45→20:53)
[2021-05-15] MEDS: Calcitriol 0.25 MCG CAP PO SCH (08:45)
[2021-05-15] MEDS: NPH, Human Insulin Isophane 300 UNIT/3 ML VIAL SC SCH (08:46)
[2021-05-15] MEDS: HumaLOG 300 UNITS/3 ML VIAL SC PRN (16:47)
[2021-05-15] MEDS: cefTRIAXone\\ROCEPHIN 2 GM in Sodium Chloride 0.9% 100 ML IVPB SCH (18:54)
[2021-05-15] MEDS: Heparin 5,000 UNITS/ML VIAL SC SCH (20:51)
[2021-05-16] MEDS: hydrALAZINE 20 MG/ML VIAL SLOW IVP PRN (01:15)
[2021-05-16 06:09] LABS: #Basophils 0.1 thou/uL (0.0-0.2); #Eosinphils 0.2 thou/uL (0.0-0.7); #Lymphocytes 2.8 thou/uL (1.20-3.40); #Monocytes 0.7 thou/uL (0.11-0.59); #Neutrophils 10.1 thou/uL (1.40-6.50); %Basophils 0.4 % (0.0-1.0); %Eosinophils 1.8 % (0.0-10.0); %Neutrophils 72.8 % (42.0-75.0); Hemoglobin 9.2 g/dL (12.0-16.0); Mean Corpuscular HGB CONC 32.4 g/dL (32.0-36.0); Mean Corpuscular Hemoglobin 29.2 pg (27.0-31.0); Mean Corpuscular Volume 90.1 fL (78.0-98.0); Mean Platelet Volume 8.6 fL (7.4-10.4); Platelet Count 357 thou/uL (130-400); RBC Distribution Width 12.4 % (11.5-14.5); Red Blood Cell (RBC) Count 3.15 mill/uL (4.20-5.40); White Blood Cell (WBC) Count 13.9 thou/uL (4.8-10.8)
[2021-05-16 06:24] LABS: Anion Gap 14 mmol/L (10-20); BUN (Urea Nitrogen) 31 mg/dL (7.0-18.7); Calc. Creatinine Clearance 26 mL/min (70-130); Carbon Dioxide 23 mmol/L (22-29); Chloride 108 mmol/L (98-107); Glucose 118 mg/dL (70-105); Sodium 142 mmol/L (136-145)
[2021-05-16 06:32] LABS: Potassium 2.9 mmol/L (3.5-5.1)
[2021-05-16] MEDS ORDERED: Potassium Chloride 20 MEQ TAB PO SCH (06:45)
[2021-05-16] MEDS: NPH, Human Insulin Isophane 300 UNIT/3 ML VIAL SC SCH (08:20)
[2021-05-16] MEDS: Folic Acid/Vit B Comp W-C PO SCH (08:20)
[2021-05-16] MEDS: Heparin 5,000 UNITS/ML VIAL SC SCH ×2 (08:21→20:40)
[2021-05-16] MEDS: Carvedilol 6.25 MG TAB PO SCH ×3 (08:22→20:39)
[2021-05-16] MEDS: Ferrous Gluconate 324 MG TAB PO SCH (08:22)
[2021-05-16] MEDS: Calcitriol 0.25 MCG CAP PO SCH (08:22)
[2021-05-16] MEDS: Ascorbic Acid 500 mg Chewable Tablet PO SCH (08:22)
[2021-05-16] MEDS: Docusate 100 MG CAP PO SCH (08:23)
[2021-05-16] MEDS: Senokot S 8.6-50 MG TAB PO SCH ×2 (08:23→20:39)
[2021-05-16] MEDS ORDERED: Heparin 10,000 UNITS/ 10 ML VIAL ONE (09:12)
[2021-05-16 09:15] VITALS: BMI 37.3
[2021-05-16] MEDS ORDERED: Sterile Water 10 ML VIAL IVP SCH (10:45)
[2021-05-16] MEDS ORDERED: Activase 2 MG VIAL CATH SCH (10:45)
[2021-05-16] MEDS: Acetaminophen 325 MG TAB PO PRN (15:15)
[2021-05-16] MEDS: cefTRIAXone\\ROCEPHIN 2 GM in Sodium Chloride 0.9% 100 ML IVPB SCH (17:57)
[2021-05-17 04:51] LABS: #Basophils 0.1 thou/uL (0.0-0.2); #Eosinphils 0.2 thou/uL (0.0-0.7); #Lymphocytes 2.8 thou/uL (1.20-3.40); #Monocytes 0.9 thou/uL (0.11-0.59); #Neutrophils 10.2 thou/uL (1.40-6.50); %Basophils 0.5 % (0.0-1.0); %Eosinophils 1.3 % (0.0-10.0); %Lymphocytes 19.5 % (21.0-51.0); %Monocytes 6.3 % (0.0-10.0); %Neutrophils 72.4 % (42.0-75.0); Hemoglobin 9.4 g/dL (12.0-16.0); Mean Corpuscular HGB CONC 32.1 g/dL (32.0-36.0); Mean Corpuscular Hemoglobin 28.9 pg (27.0-31.0); Mean Platelet Volume 8.5 fL (7.4-10.4); Platelet Count 333 thou/uL (130-400); RBC Distribution Width 12.5 % (11.5-14.5); Red Blood Cell (RBC) Count 3.23 mill/uL (4.20-5.40); White Blood Cell (WBC) Count 14.1 thou/uL (4.8-10.8)
[2021-05-17 05:10] LABS: Anion Gap 14 mmol/L (10-20); BUN (Urea Nitrogen) 24 mg/dL (7.0-18.7); Calc. Creatinine Clearance 30 mL/min (70-130); Carbon Dioxide 25 mmol/L (22-29); Chloride 106 mmol/L (98-107); Glucose 99 mg/dL (70-105); Potassium 3.4 mmol/L (3.5-5.1); Sodium 142 mmol/L (136-145)
[2021-05-17 09:28] LABS: Hemoglobin A1c 7.2 % (4.0-6.0)
[2021-05-17] MEDS: Ferrous Gluconate 324 MG TAB PO SCH ×2 (10:36→12:36)
[2021-05-17] MEDS: Carvedilol 6.25 MG TAB PO SCH ×3 (10:36→21:18)
[2021-05-17] MEDS: Senokot S 8.6-50 MG TAB PO SCH ×4 (10:37→21:51)
[2021-05-17] MEDS: Ascorbic Acid 500 mg Chewable Tablet PO SCH ×2 (10:37→12:36)
[2021-05-17] MEDS: Calcitriol 0.25 MCG CAP PO SCH ×2 (10:37→12:36)
[2021-05-17] MEDS: Folic Acid/Vit B Comp W-C PO SCH ×2 (10:37→12:37)
[2021-05-17] MEDS: Cephalexin 250 MG CAP PO SCH ×3 (13:15→23:40)
[2021-05-17] MEDS ORDERED: CEFAZOLIN 2 GM, Admixture Fee 1 EACH in Sodium Chloride 0.9% 100 ML IVPB SCH (15:00)
[2021-05-17] MEDS ORDERED: Heparin 5,000 UNITS/ML VIAL ONE (15:01)
[2021-05-17] MEDS ORDERED: Protamine Sulfate 50 MG/5 ML VIAL ONE (15:01)
[2021-05-17] MEDS ORDERED: Ioversol 68 % 50 ML VIAL ONE (15:01)
[2021-05-17] MEDS ORDERED: Bupivacaine 0.25% 10 ML VIAL ONE (15:01)
[2021-05-17] MEDS ORDERED: Heparin 10,000 UNITS/ 10 ML VIAL ONE (15:01)
[2021-05-17] MEDS ORDERED: EPINEPHrine 1 MG/ML AMP ONE (15:02)
[2021-05-17] MEDS ORDERED: Famotidine/PF 20 mg/2ml Vial ONE (16:47)
[2021-05-17] MEDS ORDERED: Fentanyl 100 MCG/2 ML VIAL ONE ×2 (16:47→18:54)
[2021-05-17] MEDS ORDERED: ceFAZolin (BATCH) 2 GM/100 ML BAG ONE (16:55)
[2021-05-17] MEDS ORDERED: Rocuronium Bromide 10 MG/ML (10ML VIAL) ONE (17:06)
[2021-05-17] MEDS ORDERED: Ondansetron PF 4 MG/2 ML Vial ONE (17:06)
[2021-05-17] MEDS ORDERED: Dexamethasone 20 MG/5 ML VIAL ONE (17:06)
[2021-05-17] MEDS ORDERED: Glycopyrrolate 0.2 MG/ML 5 ML SYRINGE ONE (17:06)
[2021-05-17] MEDS ORDERED: PROPOFOL 200 MG/20 ML VIAL ONE (17:06)
[2021-05-17] MEDS ORDERED: traMADol HCl 50 MG TAB PO PRN (18:34)
[2021-05-17] MEDS ORDERED: Acetaminophen 500 MG TAB PO SCH (19:00)
[2021-05-17] MEDS ORDERED: Promethazine HCl 25 MG/ML VIAL IM PRN (19:03)
[2021-05-17] MEDS ORDERED: Meperidine HCl/PF 25 MG/ML VIAL SLOW IVP PRN (19:03)
[2021-05-17] MEDS ORDERED: Promethazine HCl 25 MG/ML VIAL IVPB PRN (19:03)
[2021-05-17] MEDS ORDERED: HYDROmorphone 2 MG/ML VIAL SLOW IVP PRN (19:03)
[2021-05-17] MEDS ORDERED: hydrALAZINE 20 MG/ML VIAL ONE (19:16)
[2021-05-17] MEDS: hydrALAZINE 20 MG/ML VIAL SLOW IVP PRN (19:17)
[2021-05-17] MEDS ORDERED: Nitroglycerin 0.4 MG TAB (25 Tab Bottle) SL PRN (20:05)
[2021-05-17 20:47] LABS: Troponin I 0.081 ng/mL (< 0.028)
[2021-05-17] MEDS ORDERED: ALPRAZolam 0.5 MG TAB PO SCH (21:36)
[2021-05-17] MEDS ORDERED: Acetaminophen 500 MG TAB PO PRN (23:59)
[2021-05-18 00:06] LABS: Troponin I 0.083 ng/mL (< 0.028)
[2021-05-18] MEDS: HumaLOG 300 UNITS/3 ML VIAL SC PRN (05:54)
[2021-05-18] MEDS: Cephalexin 250 MG CAP PO SCH ×2 (06:05→13:44)
[2021-05-18 06:41] LABS: Anion Gap 18 mmol/L (10-20); BUN (Urea Nitrogen) 37 mg/dL (7.0-18.7); Calc. Creatinine Clearance 24 mL/min (70-130); Calcium 7.9 mg/dL (7.8-10.44); Carbon Dioxide 21 mmol/L (22-29); Chloride 105 mmol/L (98-107); Glucose 202 mg/dL (70-105); Potassium 4.4 mmol/L (3.5-5.1); Sodium 140 mmol/L (136-145)
[2021-05-18 08:32] VITALS: TEMP 97.5
[2021-05-18] MEDS ORDERED: Heparin 10,000 UNITS/ 10 ML VIAL ONE (08:51)
[2021-05-18] MEDS: Ferrous Gluconate 324 MG TAB PO SCH (09:17)
[2021-05-18] MEDS: Calcitriol 0.25 MCG CAP PO SCH (09:17)
[2021-05-18] MEDS: Carvedilol 6.25 MG TAB PO SCH ×2 (09:17→15:59)
[2021-05-18] MEDS: Ascorbic Acid 500 mg Chewable Tablet PO SCH (09:17)
[2021-05-18] MEDS: Folic Acid/Vit B Comp W-C PO SCH (09:18)
[2021-05-18] MEDS: Senokot S 8.6-50 MG TAB PO SCH (09:18)
[2021-05-18 09:21] VITALS: BP 143/80
[2021-05-18] MEDS: EPOETIN ALFA-EPBX (ESRD) 2,000 UNIT/ML VIAL SC SCH (13:45)
[2021-05-18] MEDS: EPOETIN ALFA-EPBX (ESRD) 3,000 UNIT/ML VIAL SC SCH (13:45)
[2021-05-18] MEDS: NPH, Human Insulin Isophane 300 UNIT/3 ML VIAL SC SCH (13:46)
== END 2021-05-18 16:45 | disposition home or self-care (01) | DRG 853 ==
LOC: SUATTDRO 02:50 → ERS 02:50 → MSONC 06:07
PROVIDERS: ADMIT Internal Medicine; ATTEND Internal Medicine Geriatric Medicine
PROC: 3E03329 Introduction of Other Anti-infective into Peripheral Vein, Percutaneous Approach (ICD-10-PCS; 2021-05-06)
PROC: 30233N1 Transfusion of Nonautologous Red Blood Cells into Peripheral Vein, Percutaneous Approach (ICD-10-PCS; 2021-05-11)
PROC: 06HY33Z Insertion of Infusion Device into Lower Vein, Percutaneous Approach (ICD-10-PCS; 2021-05-11)
PROC: 5A1D70Z Performance of Urinary Filtration, Intermittent, Less than 6 Hours Per Day (ICD-10-PCS; 2021-05-11)
PROC: 031B0ZF Bypass Right Radial Artery to Lower Arm Vein, Open Approach (ICD-10-PCS; principal; 2021-05-17)
PROC: 0JH63XZ Insertion of Tunneled Vascular Access Device into Chest Subcutaneous Tissue and Fascia, Percutaneous Approach (ICD-10-PCS; 2021-05-17)
DX: A41.9 Sepsis, unspecified organism (principal); N18.6 End stage renal disease; L03.116 Cellulitis of left lower limb; N17.9 Acute kidney failure, unspecified; E87.2 Acidosis; N25.81 Secondary hyperparathyroidism of renal origin; I12.0 Hypertensive chronic kidney disease with stage 5 chronic kidney disease or end stage renal disease; Z20.822 Contact with and (suspected) exposure to COVID-19; E11.65 Type 2 diabetes mellitus with hyperglycemia; F41.9 Anxiety disorder, unspecified; E11.22 Type 2 diabetes mellitus with diabetic chronic kidney disease; D63.1 Anemia in chronic kidney disease; E88.09 Other disorders of plasma-protein metabolism, not elsewhere classified; E83.51 Hypocalcemia; E66.01 Morbid (severe) obesity due to excess calories; E88.81 Metabolic syndrome and other insulin resistance; E87.6 Hypokalemia; Z91.14 Patient's other noncompliance with medication regimen; Z98.51 Tubal ligation status; Z86.16 Personal history of COVID-19; Z79.84 Long term (current) use of oral hypoglycemic drugs; Z79.899 Other long term (current) drug therapy; Z68.36 Body mass index [BMI] 36.0-36.9, adult
CPT/HCPCS: 36415; 36416; 36430; 70450; 71045; 76700; 76770; 80048; 80053; 80202; 81003; 81015; 82306; 82570; 82607; 82728; 82746; 83036; 83540; 83550; 83605; 83690; 83735; 83935; 83970; 84100; 84156; 84300; 84443; 84484; 84702; 85025; 85046; 86140; 86580; 86704; 86706; 86803; 86850; 86900; 86901; 87040; 87077; 87086; 87340; 90935; 93005; 93010; 93306; 93970; 96365; 96367; 96375; C1751; C1752; C1776; G0257; J0171; J0360; J0690; J0692; J0696; J1100; J1642; J1644; J1815; J2270; J2405; J2704; J2720; J2997; J3010; J3370; J3490; J7050; J7070; P9016; P9047; Q5105; Q9967; S0020; S0028; U0003; U0005

== ENCOUNTER 2021-06-16 15:26 | Outpatient (CLI) | payer SELFPAY ==
[2021-06-17 12:39] LABS: SARS-CoV-2 PCR by NAA Not Detected (NotDetected)
== END 2021-06-16 15:27 | disposition home or self-care (01) ==
LOC: LABBT 15:26
PROVIDERS: ATTEND Specialist
DX: E11.65 Type 2 diabetes mellitus with hyperglycemia (principal); E11.22 Type 2 diabetes mellitus with diabetic chronic kidney disease; N18.6 End stage renal disease; T82.590A Other mechanical complication of surgically created arteriovenous fistula, initial encounter; Z20.822 Contact with and (suspected) exposure to COVID-19
CPT/HCPCS: U0003; U0005

== ENCOUNTER 2021-06-21 10:47 | Day surgery (SDC) | payer SELFPAY ==
[2021-06-19 11:03] VITALS: BMI 36.3
[2021-06-21 12:18] LABS: #Basophils 0.1 thou/uL (0.0-0.2); #Eosinphils 0.4 thou/uL (0.0-0.7); #Lymphocytes 2.6 thou/uL (1.20-3.40); #Monocytes 0.4 thou/uL (0.11-0.59); %Eosinophils 5.1 % (0.0-10.0); %Lymphocytes 34.5 % (21.0-51.0); %Monocytes 5.8 % (0.0-10.0); %Neutrophils 53.6 % (42.0-75.0); Hemoglobin 9.9 g/dL (12.0-16.0); Mean Corpuscular HGB CONC 32.7 g/dL (32.0-36.0); Mean Corpuscular Hemoglobin 29.7 pg (27.0-31.0); Mean Corpuscular Volume 90.7 fL (78.0-98.0); Mean Platelet Volume 10.5 fL (7.4-10.4); Platelet Count 240 thou/uL (130-400); RBC Distribution Width 14.6 % (11.5-14.5); Red Blood Cell (RBC) Count 3.32 mill/uL (4.20-5.40); White Blood Cell (WBC) Count 7.5 thou/uL (4.8-10.8)
[2021-06-21 12:34] LABS: Anion Gap 16 mmol/L (10-20); BUN (Urea Nitrogen) 47 mg/dL (7.0-18.7); Calc. Creatinine Clearance 20 mL/min (70-130); Calcium 8.5 mg/dL (7.8-10.44); Carbon Dioxide 25 mmol/L (22-29); Chloride 104 mmol/L (98-107); Glucose 345 mg/dL (70-105); Potassium 3.8 mmol/L (3.5-5.1); Sodium 141 mmol/L (136-145)
[2021-06-21] MEDS ORDERED: Protamine Sulfate 50 MG/5 ML VIAL ONE (12:49)
[2021-06-21] MEDS ORDERED: Heparin 10,000 UNITS/ 10 ML VIAL ONE (12:49)
[2021-06-21] MEDS ORDERED: Lidocaine 1% w/Epinephrine 1:100K 20 ML VIAL ONE (12:49)
[2021-06-21] MEDS ORDERED: Bupivacaine PF 0.5% 30 ML VIAL ONE (12:49)
[2021-06-21] MEDS ORDERED: Heparin 5,000 UNITS/ML VIAL ONE (12:51)
[2021-06-21] MEDS ORDERED: Dexmedetomidine 200 MCG/2 ML VIAL ONE (12:56)
[2021-06-21] MEDS ORDERED: fentaNYL Citrate/PF 100 MCG/2 ML SYRINGE ONE (12:56)
[2021-06-21] MEDS ORDERED: ceFAZolin (BATCH) 2 GM/100 ML BAG ONE (12:58)
[2021-06-21] MEDS ORDERED: ePHEDrine 50 MG/ML VIAL ONE (13:10)
[2021-06-21] MEDS ORDERED: Ondansetron PF 4 MG/2 ML Vial ONE (13:10)
[2021-06-21] MEDS ORDERED: PHENYLEPHRINE-NS 100 MCG/ML 10 ML SYRINGE ONE (13:10)
[2021-06-21] MEDS ORDERED: Insulin Regular 300 UNITS/3 ML VIAL ONE (13:10)
[2021-06-21] MEDS ORDERED: PROPOFOL 200 MG/20 ML VIAL ONE (13:10)
[2021-06-21] MEDS ORDERED: Lidocaine 1% PF 5 ML VIAL ONE (13:10)
[2021-06-21] MEDS ORDERED: HYDROcodone/Acetaminophen 5/325 mg Tablet ONE (17:00)
[2021-06-21] MEDS ORDERED: Heparin 1,000 UNITS/ML VIAL ONE (17:35)
== END 2021-06-21 17:57 | disposition home or self-care (01) ==
LOC: SDC 10:47
PROVIDERS: ATTEND Specialist
PROC: 03150JD Bypass Right Axillary Artery to Upper Arm Vein with Synthetic Substitute, Open Approach (ICD-10-PCS; principal; 2021-06-21)
DX: I12.0 Hypertensive chronic kidney disease with stage 5 chronic kidney disease or end stage renal disease (principal); E11.22 Type 2 diabetes mellitus with diabetic chronic kidney disease; N18.6 End stage renal disease; T82.868A Thrombosis due to vascular prosthetic devices, implants and grafts, initial encounter; P14.3 Other brachial plexus birth injuries; Z87.891 Personal history of nicotine dependence; Z79.2 Long term (current) use of antibiotics; Z79.4 Long term (current) use of insulin; Z79.899 Other long term (current) drug therapy; Z99.2 Dependence on renal dialysis; Y81.1 Therapeutic (nonsurgical) and rehabilitative general- and plastic-surgery devices associated with adverse incidents
CPT/HCPCS: 36416; 80048; 85025; C1713; C1776; J0690; J1644; J1815; J2405; J2704; J2720; J3490; L8670; S0020

== ENCOUNTER 2021-09-11 16:45 | Outpatient (CLI) | payer SELFPAY | END 2021-09-11 16:46 | disposition home or self-care (01) | LOC: LABBT 16:45 | PROVIDERS: ATTEND Specialist | DX: Z20.822 Contact with and (suspected) exposure to COVID-19 (principal) | CPT/HCPCS: 87811 ==

== ENCOUNTER 2021-09-12 10:14 | Emergency (ER) | payer MEDICARE, MEDICAID ==
[2021-09-12 11:19] LABS: #Eosinphils 0.3 thou/uL (0.0-0.7); #Lymphocytes 2.7 thou/uL (1.20-3.40); #Monocytes 0.4 thou/uL (0.11-0.59); #Neutrophils 4.8 thou/uL (1.40-6.50); %Basophils 0.5 % (0.0-1.0); %Eosinophils 3.1 % (0.0-10.0); %Lymphocytes 32.9 % (21.0-51.0); %Monocytes 5.2 % (0.0-10.0); %Neutrophils 58.3 % (42.0-75.0); Mean Corpuscular HGB CONC 32.9 g/dL (32.0-36.0); Mean Corpuscular Hemoglobin 30.2 pg (27.0-31.0); Mean Corpuscular Volume 91.6 fL (78.0-98.0); Mean Platelet Volume 10.1 fL (7.4-10.4); Platelet Count 195 thou/uL (130-400); RBC Distribution Width 12.8 % (11.5-14.5); Red Blood Cell (RBC) Count 3.98 mill/uL (4.20-5.40); White Blood Cell (WBC) Count 8.2 thou/uL (4.8-10.8)
[2021-09-12 11:31] LABS: Anion Gap 12 mmol/L (10-20); BUN (Urea Nitrogen) 60 mg/dL (7.0-18.7); Calc. Creatinine Clearance 0 mL/min (70-130); Calcium 8.9 mg/dL (7.8-10.44); Carbon Dioxide 25 mmol/L (22-29); Chloride 109 mmol/L (98-107); Estimated GFR 11; Glucose 180 mg/dL (70-105); Potassium 4.8 mmol/L (3.5-5.1); Sodium 141 mmol/L (136-145)
[2021-09-12 11:42] LABS: SARS-CoV-2 NAA Rapid Test Not Detected (NotDetected)
[2021-09-12] MEDS ORDERED: Acetaminophen 500 MG TAB ONE (13:42)
[2021-09-12] MEDS ORDERED: fentaNYL Citrate/PF 100 MCG/2 ML SYRINGE ONE (14:20)
[2021-09-12] MEDS ORDERED: Heparin 10,000 UNITS/ 10 ML VIAL ONE ×2 (15:07→17:33)
[2021-09-12] MEDS ORDERED: Heparin 5,000 UNITS/ML VIAL ONE ×2 (15:07→17:33)
[2021-09-12] MEDS ORDERED: Lidocaine 1% w/Epinephrine 1:200K 30 ML VIAL ONE (15:07)
[2021-09-12] MEDS ORDERED: Bupivacaine 0.25% 10 ML VIAL ONE (15:07)
[2021-09-12] MEDS ORDERED: CEFAZOLIN 2 GM VIAL ONE (15:27)
[2021-09-12] MEDS ORDERED: Sodium Chloride 0.9% 100 ML ONE (15:27)
[2021-09-12] MEDS ORDERED: PROPOFOL 200 MG/20 ML VIAL ONE (15:37)
[2021-09-12] MEDS ORDERED: Ondansetron PF 4 MG/2 ML Vial ONE (15:37)
[2021-09-12] MEDS ORDERED: Succinylcholine 200 MG/10 ml SYRINGE FS ONE (15:37)
[2021-09-12] MEDS ORDERED: Glycopyrrolate 0.2 MG/ML 5 ML SYRINGE ONE (15:37)
[2021-09-12] MEDS ORDERED: Dexamethasone 20 MG/5 ML VIAL ONE (15:37)
[2021-09-12] MEDS ORDERED: Rocuronium Bromide 10 MG/ML (10ML VIAL) ONE (15:37)
[2021-09-12] MEDS ORDERED: Labetalol HCl 100 MG/20 ML VIAL ONE (17:13)
[2021-09-12] MEDS ORDERED: Fentanyl 100 MCG/2 ML VIAL ONE (17:42)
[2021-09-12] MEDS ORDERED: Heparin 1,000 UNITS/ML VIAL ONE (17:56)
[2021-09-12] MEDS ORDERED: Heparin 1,000 UNITS/ML VIAL CATH SCH (18:00)
[2021-09-12] MEDS ORDERED: HYDROcodone/Acetaminophen 5/325 mg Tablet ONE (18:02)
== END 2021-09-12 12:54 | disposition admitted as inpatient to this hospital (09) ==
LOC: ERS 10:14
PROC: 05HY33Z Insertion of Infusion Device into Upper Vein, Percutaneous Approach (ICD-10-PCS; principal; 2021-09-12)
DX: T82.41XA Breakdown (mechanical) of vascular dialysis catheter, initial encounter (principal); E11.22 Type 2 diabetes mellitus with diabetic chronic kidney disease; I12.0 Hypertensive chronic kidney disease with stage 5 chronic kidney disease or end stage renal disease; N18.6 End stage renal disease; Z99.2 Dependence on renal dialysis; Z79.899 Other long term (current) drug therapy
CPT/HCPCS: 36416; 71045; 80048; 85025; C1752; C1776; J0690; J1100; J1642; J1644; J2405; J2704; J2710; J3010; J3490; S0020; U0002

== ENCOUNTER 2022-10-19 15:11 | Inpatient (IN) | payer MEDICARE, MEDICAID ==
[2022-10-19 16:41] LABS: #Basophils 0.1 thou/uL (0.0-0.2); #Eosinphils 0.1 thou/uL (0.0-0.7); #Monocytes 0.9 thou/uL (0.11-0.59); #Neutrophils 9.5 thou/uL (1.40-6.50); %Basophils 0.5 % (0.0-1.0); %Eosinophils 0.7 % (0.0-10.0); %Lymphocytes 22.8 % (21.0-51.0); %Monocytes 6.8 % (0.0-10.0); %Neutrophils 68.8 % (42.0-75.0); Hematocrit 38.6 % (36.0-47.0); Hemoglobin 12.9 g/dL (12.0-16.0); Mean Corpuscular HGB CONC 33.4 g/dL (32.0-36.0); Mean Corpuscular Hemoglobin 30.2 pg (27.0-31.0); Mean Corpuscular Volume 90.4 fl (78.0-98.0); Mean Platelet Volume 12.5 fL (7.4-10.4); Platelet Count 270 10x3/uL (130-400); RBC Distribution Width 12.3 % (11.5-14.5); Red Blood Cell (RBC) Count 4.27 mill/uL (4.20-5.40); White Blood Cell (WBC) Count 13.8 10x3/uL (4.8-10.8)
[2022-10-19 17:01] LABS: PTT 28.4 sec (22.9-36.1); Prothrombin Time 13.5 sec (12.0-14.7)
[2022-10-19 17:08] LABS: ALT (SGPT) 14 U/L (8-55); AST (SGOT) 15 U/L (5-34); Alkaline Phosphatase 103 U/L (40-110); Anion Gap 18 mmol/L (10-20); BUN (Urea Nitrogen) 21 mg/dL (7.0-18.7); Bilirubin, Total 0.4 mg/dL (0.2-1.2); Calc. Creatinine Clearance 0 mL/min (70-130); Calcium 10.1 mg/dL (7.8-10.44); Carbon Dioxide 29 mmol/L (22-29); Chloride 89 mmol/L (98-107); Estimated GFR 11; Globulin 5.8 g/dL (2.4-3.5); Glucose 271 mg/dL (70-105); Potassium 3.6 mmol/L (3.5-5.1); Protein, Total 9.8 g/dL (6.0-8.3); Sodium 132 mmol/L (136-145)
[2022-10-19] MEDS ORDERED: Vancomycin 1 GM/200 ML (FROZEN) BAG ONE (17:50)
[2022-10-19] MEDS ORDERED: Piperacillin/Tazobactam 3.375 GM VIAL ONE (17:50)
[2022-10-19] MEDS ORDERED: Acetaminophen 500 MG TAB ONE (18:05)
[2022-10-19] MEDS ORDERED: Acetaminophen 325 MG TAB PO PRN (21:15)
[2022-10-19] MEDS ORDERED: Ondansetron PF 4 MG/2 ML Vial IVP PRN (21:15)
[2022-10-19] MEDS ORDERED: Ondansetron ODT 4 MG TAB SL PRN (21:15)
[2022-10-19] MEDS ORDERED: Pharmacy to Dose : CEFEPIME IVPB PRN (22:09)
[2022-10-19] MEDS ORDERED: Senokot S 8.6-50 MG TAB PO PRN (22:10)
[2022-10-19 22:11] VITALS: BMI 34.9
[2022-10-19] MEDS ORDERED: Glucagon 1 MG/ML KIT IM PRN (22:15)
[2022-10-19] MEDS ORDERED: Dextrose 5% in Water 1,000 ML IV PRN (22:15)
[2022-10-19] MEDS ORDERED: Dextrose 50% Abboject 50 ML SYRINGE SLOW IVP PRN (22:15)
[2022-10-19] MEDS ORDERED: HumaLOG 300 UNITS/3 ML VIAL SC PRN (22:15)
[2022-10-19] MEDS ORDERED: Vancomycin Diaylsis Sliding Scale (Wt 71-99) FS SCH (22:30)
[2022-10-19] MEDS ORDERED: Cefepime 1 GM in Sodium Chloride 0.9% 100 ML IVPB SCH (23:00)
[2022-10-19] MEDS ORDERED: Vancomycin HCl 750 MG in Sodium Chloride 0.9% 250 ML 250 ML IVPB SCH (23:59)
[2022-10-20] MEDS ORDERED: Midazolam HCl 2 mg/2 ml Vial ONE (07:11)
[2022-10-20] MEDS ORDERED: fentaNYL PF 100 MCG/2 ML SYRINGE ONE (07:12)
[2022-10-20 07:31] LABS: ALT (SGPT) 8 U/L (8-55); AST (SGOT) 12 U/L (5-34); Albumin 3.1 g/dL (3.5-5.0); Alkaline Phosphatase 82 U/L (40-110); Anion Gap 16 mmol/L (10-20); BUN (Urea Nitrogen) 29 mg/dL (7.0-18.7); Bilirubin, Total 0.5 mg/dL (0.2-1.2); Calc. Creatinine Clearance 18 mL/min (70-130); Calcium 8.7 mg/dL (7.8-10.44); Carbon Dioxide 26 mmol/L (22-29); Chloride 96 mmol/L (98-107); Estimated GFR 9; Globulin 4.6 g/dL (2.4-3.5); Glucose 176 mg/dL (70-105); Potassium 3.3 mmol/L (3.5-5.1); Protein, Total 7.7 g/dL (6.0-8.3); Sodium 135 mmol/L (136-145)
[2022-10-20] MEDS ORDERED: Ondansetron HCl/PF 4 MG/2 ML Vial IVP PRN (07:53)
[2022-10-20] MEDS ORDERED: Promethazine HCl 25 MG/ML VIAL IM PRN (07:53)
[2022-10-20] MEDS ORDERED: Lidocaine 1% PF 5 ML VIAL ONE (08:03)
[2022-10-20] MEDS ORDERED: PHENYLEPHRINE-NS 100 MCG/ML 10 ML SYRINGE ONE (08:03)
[2022-10-20] MEDS ORDERED: PROPOFOL 200 MG/20 ML VIAL ONE (08:03)
[2022-10-20] MEDS ORDERED: Ondansetron PF 4 MG/2 ML Vial ONE (08:03)
[2022-10-20 08:04] LABS: #Basophils 0.1 thou/uL (0.0-0.2); #Eosinphils 0.2 thou/uL (0.0-0.7); #Monocytes 1.1 thou/uL (0.11-0.59); #Neutrophils 9.2 thou/uL (1.40-6.50); %Basophils 0.4 % (0.0-1.0); %Eosinophils 1.6 % (0.0-10.0); %Lymphocytes 16.6 % (21.0-51.0); %Monocytes 8.6 % (0.0-10.0); %Neutrophils 72.5 % (42.0-75.0); Hematocrit 33.3 % (36.0-47.0); Hemoglobin 10.5 g/dL (12.0-16.0); Mean Corpuscular HGB CONC 31.5 g/dL (32.0-36.0); Mean Corpuscular Hemoglobin 29.9 pg (27.0-31.0); Mean Platelet Volume 12.6 fL (7.4-10.4); Platelet Count 263 10x3/uL (130-400); RBC Distribution Width 12.5 % (11.5-14.5); Red Blood Cell (RBC) Count 3.51 mill/uL (4.20-5.40); White Blood Cell (WBC) Count 12.7 10x3/uL (4.8-10.8)
[2022-10-20 08:15] LABS: Mean Corpuscular Volume 94.9 fl (78.0-98.0)
[2022-10-20] MEDS ORDERED: traMADol HCl 50 MG TAB PO PRN (09:20)
[2022-10-20] MEDS: HumaLOG 300 UNITS/3 ML VIAL SC PRN ×2 (13:14→18:41)
[2022-10-20] MEDS ORDERED: Potassium Chloride 20 MEQ TAB PO SCH (21:00)
[2022-10-20] MEDS: Acetaminophen 325 MG/10.15 ML UDCUP PO PRN (21:00)
[2022-10-20] MEDS ORDERED: Insulin Glargine 30 UNITS/0.3 ML VIAL SC SCH (21:00)
[2022-10-20] MEDS: Carvedilol 6.25 MG TAB PO SCH (21:02)
[2022-10-20] MEDS: Cefepime 0.5 GM, Admixture Fee 1 EACH in Sodium Chloride 0.9% 50 ML IVPB SCH (21:03)
[2022-10-21 00:01] LABS: Vancomycin, Random 34.2 ug/mL (See Comment)
[2022-10-21] MEDS: HumaLOG 300 UNITS/3 ML VIAL SC PRN ×3 (06:00→16:23)
[2022-10-21 06:21] LABS: #Eosinphils 0.3 thou/uL (0.0-0.7); #Monocytes 0.9 thou/uL (0.11-0.59); %Basophils 0.4 % (0.0-1.0); %Eosinophils 2.3 % (0.0-10.0); %Lymphocytes 26.6 % (21.0-51.0); %Monocytes 8.2 % (0.0-10.0); %Neutrophils 62.1 % (42.0-75.0); Mean Corpuscular HGB CONC 32.3 g/dL (32.0-36.0); Mean Corpuscular Hemoglobin 30.1 pg (27.0-31.0); Mean Corpuscular Volume 93.4 fl (78.0-98.0); Platelet Count 258 10x3/uL (130-400); RBC Distribution Width 12.5 % (11.5-14.5); Red Blood Cell (RBC) Count 3.32 mill/uL (4.20-5.40); White Blood Cell (WBC) Count 11.2 10x3/uL (4.8-10.8)
[2022-10-21 06:30] LABS: Hemoglobin A1c 10.5 % (4.0-6.0)
[2022-10-21 07:46] LABS: Chloride 96 mmol/L (98-107); Potassium 3.7 mmol/L (3.5-5.1); Sodium 133 mmol/L (136-145)
[2022-10-21 07:47] LABS: Glucose 291 mg/dL (70-105)
[2022-10-21 07:49] LABS: Anion Gap 16 mmol/L (10-20); Carbon Dioxide 25 mmol/L (22-29)
[2022-10-21 07:51] LABS: Calc. Creatinine Clearance 13 mL/min (70-130); Estimated GFR 6
[2022-10-21 07:52] LABS: BUN (Urea Nitrogen) 45 mg/dL (7.0-18.7)
[2022-10-21] MEDS: Calcitriol 0.25 MCG CAP PO SCH (08:36)
[2022-10-21] MEDS: Cholecalciferol 1,000 UNITS (25 MCG) TAB PO SCH (08:36)
[2022-10-21] MEDS: Carvedilol 6.25 MG TAB PO SCH ×4 (08:36→21:10)
[2022-10-21] MEDS ORDERED: Insulin NPH Human Isophane 100 UNITS/ML (10 ML VIAL) SC SCH ×2 (09:00)
[2022-10-21] MEDS: Cefepime 0.5 GM, Admixture Fee 1 EACH in Sodium Chloride 0.9% 50 ML IVPB SCH (16:10)
[2022-10-21] MEDS: Insulin NPH Human Isophane 100 UNITS/ML (10 ML VIAL) SC SCH (21:14)
[2022-10-22 06:11] LABS: #Eosinphils 0.2 thou/uL (0.0-0.7); #Monocytes 0.8 thou/uL (0.11-0.59); #Neutrophils 6.2 thou/uL (1.40-6.50); %Basophils 0.2 % (0.0-1.0); %Lymphocytes 30.3 % (21.0-51.0); %Neutrophils 59.2 % (42.0-75.0); Hematocrit 29.5 % (36.0-47.0); Hemoglobin 9.5 g/dL (12.0-16.0); Mean Corpuscular HGB CONC 32.2 g/dL (32.0-36.0); Mean Corpuscular Hemoglobin 30.4 pg (27.0-31.0); Mean Corpuscular Volume 94.2 fl (78.0-98.0); Platelet Count 254 10x3/uL (130-400); RBC Distribution Width 12.5 % (11.5-14.5); Red Blood Cell (RBC) Count 3.13 mill/uL (4.20-5.40); White Blood Cell (WBC) Count 10.5 10x3/uL (4.8-10.8)
[2022-10-22 06:36] LABS: Anion Gap 19 mmol/L (10-20); BUN (Urea Nitrogen) 61 mg/dL (7.0-18.7); Calc. Creatinine Clearance 11 mL/min (70-130); Calcium 8.3 mg/dL (7.8-10.44); Carbon Dioxide 21 mmol/L (22-29); Chloride 100 mmol/L (98-107); Estimated GFR 5; Glucose 141 mg/dL (70-105); Potassium 3.9 mmol/L (3.5-5.1); Sodium 136 mmol/L (136-145)
[2022-10-22] MEDS: Cholecalciferol 1,000 UNITS (25 MCG) TAB PO SCH (08:29)
[2022-10-22] MEDS: Calcitriol 0.25 MCG CAP PO SCH (08:29)
[2022-10-22] MEDS: Carvedilol 6.25 MG TAB PO SCH ×3 (08:30→21:12)
[2022-10-22] MEDS ORDERED: Heparin 10,000 UNITS/ 10 ML VIAL ONE (08:36)
[2022-10-22] MEDS: Insulin NPH Human Isophane 100 UNITS/ML (10 ML VIAL) SC SCH ×2 (09:21→21:13)
[2022-10-22] MEDS: Morphine 2 MG/ML VIAL SLOW IVP PRN ×2 (09:42→16:52)
[2022-10-22 11:24] LABS: HBSAg Index 0.27 S/CO (0-0.99); Hep B Core Total Ab Non-Reactive (NonReactive); Hep B Core Total Index 0.13 S/CO (0-0.79); Hep B Surf AB Reactive (NonReactive); Hep B Surf Ag Non-Reactive S/CO (NonReactive); Hep C IgG Ab Non-Reactive S/CO (NonReactive); Hep C Index 0.43 S/CO (0-0.79)
[2022-10-22] MEDS: Cefepime 1 GM in Sodium Chloride 0.9% 100 ML IVPB SCH (16:50)
[2022-10-22] MEDS: Acetaminophen 325 MG/10.15 ML UDCUP PO PRN (21:12)
[2022-10-23] MEDS: Acetaminophen 325 MG/10.15 ML UDCUP PO PRN (01:54)
[2022-10-23 06:45] LABS: #Basophils 0.1 thou/uL (0.0-0.2); #Eosinphils 0.2 thou/uL (0.0-0.7); #Neutrophils 5.4 thou/uL (1.40-6.50); %Basophils 0.7 % (0.0-1.0); %Eosinophils 1.5 % (0.0-10.0); %Lymphocytes 34.1 % (21.0-51.0); %Monocytes 9.7 % (0.0-10.0); %Neutrophils 53.4 % (42.0-75.0); Hematocrit 34.2 % (36.0-47.0); Hemoglobin 10.2 g/dL (12.0-16.0); Mean Corpuscular HGB CONC 29.8 g/dL (32.0-36.0); Mean Corpuscular Hemoglobin 29.9 pg (27.0-31.0); Mean Corpuscular Volume 100.3 fl (78.0-98.0); Mean Platelet Volume 11.9 fL (7.4-10.4); Platelet Count 279 10x3/uL (130-400); RBC Distribution Width 12.6 % (11.5-14.5); Red Blood Cell (RBC) Count 3.41 mill/uL (4.20-5.40); White Blood Cell (WBC) Count 10.1 10x3/uL (4.8-10.8)
[2022-10-23] MEDS: Insulin NPH Human Isophane 100 UNITS/ML (10 ML VIAL) SC SCH ×2 (08:20→21:06)
[2022-10-23] MEDS: Carvedilol 6.25 MG TAB PO SCH ×3 (08:21→21:05)
[2022-10-23] MEDS: Cholecalciferol 1,000 UNITS (25 MCG) TAB PO SCH (08:21)
[2022-10-23] MEDS: Calcitriol 0.25 MCG CAP PO SCH (08:21)
[2022-10-23 08:23] LABS: Anion Gap 20 mmol/L (10-20); BUN (Urea Nitrogen) 33 mg/dL (7.0-18.7); Calc. Creatinine Clearance 15 mL/min (70-130); Calcium 8.7 mg/dL (7.8-10.44); Carbon Dioxide 21 mmol/L (22-29); Chloride 97 mmol/L (98-107); Estimated GFR 7; Glucose 139 mg/dL (70-105); Potassium 5.1 mmol/L (3.5-5.1); Sodium 133 mmol/L (136-145)
[2022-10-23] MEDS: Cefepime 1 GM in Sodium Chloride 0.9% 100 ML IVPB SCH (16:33)
[2022-10-24 08:18] VITALS: TEMP 98.9
[2022-10-24] MEDS ORDERED: Epoetin (ESRD) 10,000 UNITS/ML VIAL IVP SCH (09:00)
[2022-10-24] MEDS ORDERED: EPOETIN ALFA-EPBX (ESRD) 10,000 UNITS/ML VIAL IVP SCH (09:00)
[2022-10-24] MEDS ORDERED: Heparin 10,000 UNITS/ 10 ML VIAL ONE (09:45)
[2022-10-24] MEDS: Calcitriol 0.25 MCG CAP PO SCH (09:54)
[2022-10-24] MEDS: Cholecalciferol 1,000 UNITS (25 MCG) TAB PO SCH (09:55)
[2022-10-24] MEDS: Carvedilol 6.25 MG TAB PO SCH ×2 (09:55→14:46)
[2022-10-24] MEDS: Insulin NPH Human Isophane 100 UNITS/ML (10 ML VIAL) SC SCH (09:56)
[2022-10-24 09:57] VITALS: BP 111/66
[2022-10-24] MEDS: Morphine 2 MG/ML VIAL SLOW IVP PRN (13:21)
== END 2022-10-24 15:55 | disposition home health service (06) | DRG 853 ==
LOC: ERS 15:11 → T4-A 20:52
PROVIDERS: ADMIT Internal Medicine; ATTEND Family Medicine
PROC: 3E03329 Introduction of Other Anti-infective into Peripheral Vein, Percutaneous Approach (ICD-10-PCS; 2022-10-19)
PROC: 0Y6N0ZF Detachment at Left Foot, Partial 5th Ray, Open Approach (ICD-10-PCS; principal; 2022-10-20)
PROC: 5A1D70Z Performance of Urinary Filtration, Intermittent, Less than 6 Hours Per Day (ICD-10-PCS; 2022-10-22)
DX: A41.9 Sepsis, unspecified organism (principal); N18.6 End stage renal disease; I12.0 Hypertensive chronic kidney disease with stage 5 chronic kidney disease or end stage renal disease; L03.116 Cellulitis of left lower limb; E87.1 Hypo-osmolality and hyponatremia; E11.52 Type 2 diabetes mellitus with diabetic peripheral angiopathy with gangrene; M86.8X7 Other osteomyelitis, ankle and foot; N17.9 Acute kidney failure, unspecified; E11.69 Type 2 diabetes mellitus with other specified complication; E11.621 Type 2 diabetes mellitus with foot ulcer; F41.9 Anxiety disorder, unspecified; E11.22 Type 2 diabetes mellitus with diabetic chronic kidney disease; E11.65 Type 2 diabetes mellitus with hyperglycemia; E66.9 Obesity, unspecified; E87.6 Hypokalemia; D63.1 Anemia in chronic kidney disease; Z98.51 Tubal ligation status; Z98.890 Other specified postprocedural states; Z68.34 Body mass index [BMI] 34.0-34.9, adult; Z79.4 Long term (current) use of insulin; Z99.2 Dependence on renal dialysis; L97.529 Non-pressure chronic ulcer of other part of left foot with unspecified severity; Z79.899 Other long term (current) drug therapy
CPT/HCPCS: 36415; 36416; 80048; 80053; 80202; 83036; 83605; 85025; 85610; 85730; 86704; 87040; 87070; 87205; 88305; 88311; 90935; 93005; 94760; 96365; 97139; G0257; J0692; J1644; J1815; J2250; J2272; J2405; J2543; J2704; J3370; J3370-JW; J3490; J7050; Q4081

== ENCOUNTER 2023-06-25 10:36 | Emergency (ER) | payer MEDICARE, MEDICAID ==
[2023-06-25 11:24] LABS: #Basophils 0.05 10x3/uL (0.0-0.2); %Basophils 0.5 % (0.0-1.0); %Eosinophils 1.4 % (0.0-10.0); %Lymphocytes 40.2 % (21.0-51.0); %Monocytes 5.9 % (0.0-10.0); %Neutrophils 51.6 % (42.0-75.0); Hematocrit 36.5 % (36.0-47.0); Hemoglobin 12.4 g/dL (12.0-16.0); Mean Corpuscular Hemoglobin 30.5 pg (27.0-31.0); Mean Corpuscular Volume 89.7 fL (78.0-98.0); Mean Platelet Volume 13.3 fL (7.4-10.4); Platelet Count 241 10x3/uL (130-400); RBC Distribution Width 14.1 % (11.5-14.5); Red Blood Cell (RBC) Count 4.07 mill/uL (4.20-5.40)
[2023-06-25 11:31] LABS: Troponin I 0.025 ng/mL (< 0.028)
[2023-06-25 11:38] LABS: ALT (SGPT) 13 U/L (8-55); AST (SGOT) 11 U/L (5-34); Albumin 3.5 g/dL (3.5-5.0); Alkaline Phosphatase 109 U/L (40-110); Anion Gap 15 mmol/L (10-20); BUN (Urea Nitrogen) 48 mg/dL (7.0-18.7); Bilirubin, Total 0.4 mg/dL (0.2-1.2); Calc. Creatinine Clearance 0 mL/min (70-130); Calcium 9.3 mg/dL (7.8-10.44); Carbon Dioxide 28 mmol/L (22-29); Chloride 96 mmol/L (98-107); Estimated GFR 9; Globulin 4.9 g/dL (2.4-3.5); Glucose 635 mg/dL (70-105); Lipase 148 U/L (8-78); Magnesium 2.8 mg/dL (1.6-2.6); Phosphorus 2.3 mg/dL (2.3-4.7); Potassium 4.3 mmol/L (3.5-5.1); Protein, Total 8.4 g/dL (6.0-8.3); Sodium 135 mmol/L (136-145)
[2023-06-25] MEDS ORDERED: Insulin Regular 300 UNITS/3 ML VIAL ONE (11:51)
== END 2023-06-25 12:55 | disposition home or self-care (01) ==
LOC: ERS 10:36
DX: E11.65 Type 2 diabetes mellitus with hyperglycemia (principal); I10 Essential (primary) hypertension; Z79.4 Long term (current) use of insulin
CPT/HCPCS: 36415; 36416; 71045; 80053; 82010; 83690; 83735; 84100; 84484; 85025; 87040; 93005; 96361; 96374; J1815